=== PATIENT | female | born 1995 | race African-American/Black ===

== ENCOUNTER 2016-08-16 09:49 | Emergency (ER) | payer MEDICAID ==
--- NOTE | 2016-08-16 10:29 | ER Document Report ---
ED GI/ - General Chief Complaint: Urinary Problem Stated Complaint: URINARY PROBLEMS Time Seen by Provider: 08/16/16 10:17 Notes: 21 yo female c/o urinary frequency and vaginal discharge x several days. denies vaginal itch, pain, odor, dysuria. TRAVEL OUTSIDE OF THE [place] IN LAST 30 DAYS: No - HPI Patient complains to provider of: Vaginal discharge Onset: Yesterday Timing/Duration: Sudden Quality of pain: No pain Vaginal bleeding (Compared to normal period): None LMP: 07/21/16 Sexual history: Active, Unprotected intercourse Associated symptoms: Urinary frequency, Vaginal discharge Exacerbated by: Denies Relieved by: Denies Similar symptoms previously: No - Related Data Allergies/Adverse Reactions: No Known Allergies Allergy (Unverified 08/16/16 09:56) Past Medical History - General Information source: Patient - Social History Smoking Status: Never Smoker Frequency of alcohol use: None Drug Abuse: None Lives with: Family Family History: Reviewed & Not Pertinent Patient has suicidal ideation: No Patient has homicidal ideation: No - Medical History Medical History: Negative Renal/ Medical History: Denies: Hx Peritoneal Dialysis Review of Systems - Review of Systems Constitutional: No symptoms reported EENT: No symptoms reported Cardiovascular: No symptoms reported Respiratory: No symptoms reported Gastrointestinal: No symptoms reported Genitourinary: See HPI Female Genitourinary: No symptoms reported Musculoskeletal: No symptoms reported Skin: No symptoms reported Hematologic/Lymphatic: No symptoms reported Neurological/Psychological: No symptoms reported Physical Exam - Vital signs Vitals: Temp Pulse Resp BP Pulse Ox 98.3 F 89 16 131/86 H 98 08/16/16 09:53 08/16/16 09:53 08/16/16 09:53 08/16/16 09:53 08/16/16 09:53 Interpretation: Normal - General General appearance: Appears well, Alert - HEENT Head: Normocephalic, Atraumatic Eyes: Normal Pupils: PERRL - Respiratory Respiratory status: No respiratory distress Chest status: Nontender Breath sounds: Normal Chest palpation: Normal - Cardiovascular Rhythm: Regular Heart sounds: Normal auscultation Murmur: No - Abdominal Inspection: Normal Distension: No distension Bowel sounds: Normal Tenderness: Nontender Organomegaly: No organomegaly - Genitourinary External exam: Normal Speculum exam: Vaginal discharge - thin, yelloe Vaginal bleeding: None Bimanuel exam: Normal. No: Cervical motion tender, Adnexal mass, Adnexal tenderness, Uterus enlarged - Back Back: Normal, Nontender - Extremities General upper extremity: Normal inspection, Nontender, Normal color, Normal ROM , Normal temperature General lower extremity: Normal inspection, Nontender, Normal color, Normal ROM , Normal temperature, Normal weight bearing. No: Camilo's sign - Neurological Neuro grossly intact: Yes Cognition: Normal Orientation: AAOx4 Maxx Coma Scale Eye Opening: Spontaneous Maxx Coma Scale Verbal: Oriented Big Arm Coma Scale Motor: Obeys Commands Big Arm Coma Scale Total: 15 Speech: Normal Motor strength normal: LUE, RUE, LLE, RLE Sensory: Normal - Psychological Associated symptoms: Normal affect, Normal mood - Skin Skin Temperature: Warm Skin Moisture: Dry Skin Color: Normal Course - Re-evaluation Re-evalutation: 08/16/16 10:29 pt evaluated, labs ordered. will continue to monitor 08/16/16 11:49 urinalysis neg, HCG neg, wet mount + BV. pt informed of results 08/16/16 12:47 + chlamydia. pt informed of results. treated with zithromax 1G in ED - Vital Signs Vital signs: Temp Pulse Resp BP Pulse Ox 98.3 F 89 16 131/86 H 98 08/16/16 09:53 08/16/16 09:53 08/16/16 09:53 08/16/16 09:53 08/16/16 09:53 - Laboratory Laboratory results interpreted by me: 08/16/16 08/16/16 10:45 10:56 Urine Urobilinogen 2.0 H Chlamydia DNA (PCR) DETECTED H Discharge - Discharge Clinical Impression: Bacterial vaginosis, Chlamydia Condition: Stable Disposition: HOME, SELF-CARE Instructions: Antibiotic Therapy ([facility]), Vaginosis, Bacterial ([facility]), Azithromycin ([facility]), Chlamydia ([facility]) Additional Instructions: You were treated for chlamydia and bacterial vaginosis today Your partner needs treatment for chlamydia Recommend no unprotected sex Follow up with your primary care if symptoms persist Prescriptions: Metronidazole [Flagyl 500 mg Tablet] 500 mg PO BID #14 tablet
[2016-08-16 11:06] LABS: APPEARANCE,URINE CLEAR; BILIRUBIN,URINE NEGATIVE (NEGATIVE); GLUCOSE, URINE NEGATIVE (NEGATIVE); KETONES,URINE NEGATIVE (NEGATIVE); LEUKOCYTE ESTERASE,URINE NEGATIVE (NEGATIVE); NITRITE,URINE NEGATIVE (NEGATIVE); PROTEIN,URINE NEGATIVE (NEGATIVE); URINE SPECIFIC GRAVITY 1.018
[2016-08-16 12:36] LABS: CHLAM PCR DETECTED (NOT DETECT)
[2016-08-16] MEDS ORDERED: AZITHROMYCIN 250 MG TABLET PO ONE (12:51)
[2016-08-16 13:03] VITALS: BP 124/83
== END 2016-08-16 12:55 | disposition home or self-care (01) ==
LOC: ER 09:49
DX: A56.02 Chlamydial vulvovaginitis (principal); R35.0 Frequency of micturition
CPT/HCPCS: 81001; 81025; 87210; 87491; 87591; 99283

== ENCOUNTER 2017-01-27 12:50 | Emergency (ER) | payer SELFPAY ==
[2017-01-27 12:54] VITALS: BP 142/76
--- NOTE | 2017-01-27 13:32 | ER Document Report ---
HPI - HPI Patient complains to provider of: Right foot pain Onset: Other Onset/Duration: Intermittent Quality of pain: Throbbing Severity: Moderate Pain Level: 3 Context: Patient states she has been having intermittent right upper foot pain and swelling for the last week and a half. Patient states she has had episodes of this in the past when she was in the marching band for high school. Denies known injury. Patient works standing on her feet all day. Associated Symptoms: None Exacerbated by: Standing, Movement Relieved by: Denies Similar symptoms previously: Yes Recently seen / treated by doctor: No - ROS ROS below otherwise negative: Yes Systems Reviewed and Negative: Yes All other systems reviewed and negative - CONSTITUTIONAL Constitutional: DENIES: Fever - EENT EENT: DENIES: Congestion - NEURO Neurology: DENIES: Headache - CARDIOVASCULAR Cardiovascular: DENIES: Chest pain - RESPIRATORY Respiratory: DENIES: Trouble Breathing - GASTROINTESTINAL Gastrointestinal: DENIES: Abdominal Pain - URINARY Urinary: DENIES: Dysuria - REPRODUCTIVE Reproductive: DENIES: : - MUSCULOSKELETAL Musculoskeletal: REPORTS: Extremity pain - Right upper foot, Swelling - DERM Skin Color: Normal Skin Problems: None Past Medical History - General Information source: Patient - Social History Smoking Status: Never Smoker Frequency of alcohol use: None Drug Abuse: None Lives with: Family Family History: Reviewed & Not Pertinent - Medical History Medical History: Negative Surgical Hx: Negative - Immunizations Hx Diphtheria, Pertussis, Tetanus Vaccination: No Vertical Provider Document - CONSTITUTIONAL Agree With Documented VS: Yes Exam Limitations: No Limitations General Appearance: WD/WN, No Apparent Distress - INFECTION CONTROL TRAVEL OUTSIDE OF THE [place] IN LAST 30 DAYS: No - HEENT HEENT: Atraumatic, Normocephalic - RESPIRATORY Respiratory: Breath Sounds Normal, No Respiratory Distress O2 Sat by Pulse Oximetry: 99 - CARDIOVASCULAR Cardiovascular: Regular Rate, Regular Rhythm - GI/ABDOMEN Gastrointestinal: Abdomen Soft - MUSCULOSKELETAL/EXTREMETIES Musculoskeletal/Extremeties: MAEW, FROM, Tender - Right lateral upper foot, Edema - Mild. negative: Eccymosis - NEURO Level of Consciousness: Awake, Alert, Appropriate Notes: Neurovascular and sensation intact to right foot. - DERM Integumentary: Warm, Dry, No Rash. negative: Abscess Course - Re-evaluation Re-evalutation: 01/27/17 14:54 X-rays normal and this was discussed with patient. - Vital Signs Vital signs: Temp Pulse Resp BP Pulse Ox 98.8 F 73 20 142/76 H 99 01/27/17 12:53 01/27/17 12:53 01/27/17 12:53 01/27/17 12:53 01/27/17 12:53 Procedures - Immobilization Right Foot Pre-Proc Neuro Vasc Exam: Normal Immobilizer type: Post-op shoe Performed by: PCT Post-Proc Neuro Vasc Exam: Normal Alignment checked and good: Yes Discharge - Discharge Clinical Impression: Right foot pain Condition: Good Disposition: HOME, SELF-CARE Additional Instructions: Ice and elevate foot Ibuprofen as prescribed Wear hard sole fracture shoe for 1-2 weeks to provide support to foot Follow-up with your primary care physician if not better in 2 weeks, may need orthopedic referral Return as needed Prescriptions: Ibuprofen 800 mg PO PRN PRN #20 tablet PRN Reason: Forms: Return to Work
--- NOTE | 2017-01-27 15:02 | RADIOLOGY REPORT (SQ) ---
EXAM DESCRIPTION: FOOT RIGHT COMPLETE COMPLETED DATE/TIME: 01/27/2017 2:31 pm REASON FOR STUDY: pain COMPARISON: None. NUMBER OF VIEWS: Three views. TECHNIQUE: AP, lateral and oblique radiographic images acquired of the right foot. LIMITATIONS: None. FINDINGS: MINERALIZATION: Normal. BONES: No acute fracture or dislocation. No worrisome bone lesions. JOINTS: No effusions. SOFT TISSUES: No soft tissue swelling. No foreign body. OTHER: No other significant finding. IMPRESSION: NEGATIVE STUDY OF THE RIGHT FOOT. NO RADIOGRAPHIC EVIDENCE OF ACUTE INJURY. TECHNICAL DOCUMENTATION: JOB ID: [id number] [employer]- All Rights Reserved
== END 2017-01-27 15:28 | disposition home or self-care (01) ==
LOC: ER 12:50
DX: M79.671 Pain in right foot (principal); M79.89 Other specified soft tissue disorders
CPT/HCPCS: 99283

== ENCOUNTER 2017-08-16 14:57 | Emergency (ER) | payer MEDICAID ==
[2017-08-16 15:17] VITALS: BP 135/77
--- NOTE | 2017-08-16 15:26 | ER Document Report ---
ED GI/ - General Chief Complaint: Urinary Frequency Stated Complaint: URINARY PROBLEMS Time Seen by Provider: 08/16/17 15:17 Mode of Arrival: Ambulatory Information source: Patient TRAVEL OUTSIDE OF THE [place] IN LAST 30 DAYS: No - HPI Patient complains to provider of: Dysuria Notes: 08/16/17 15:23 Patient is here with complaints of dysuria, urinary frequency and urgency for the last week and a half. She had tried some [id number] AZO, but states that is no longer working. Now she starting have some pain in her right back. No nausea, vomiting, diarrhea. No fever. No rash. No injury. No chest pain or shortness of breath. No vaginal bleeding or discharge. No other complaints. - Related Data Allergies/Adverse Reactions: No Known Allergies Allergy (Verified 01/27/17 12:53) Past Medical History - Social History Smoking Status: Unknown if Ever Smoked Family History: Reviewed & Not Pertinent Renal/ Medical History: Denies: Hx Peritoneal Dialysis - Immunizations Hx Diphtheria, Pertussis, Tetanus Vaccination: No Review of Systems - Review of Systems -: Yes All other systems reviewed and negative Physical Exam - Vital signs Vitals: Temp Pulse Resp BP Pulse Ox 98.6 F 93 16 135/77 H 98 08/16/17 15:04 08/16/17 15:04 08/16/17 15:04 08/16/17 15:04 08/16/17 15:04 - Notes Notes: GENERAL: alert, cooperative, nontoxic, no distress. HEAD: normocephalic, atraumatic EYES: conjunctiva pink without discharge, no external redness or swelling. EARS: no external swelling, no external redness NOSE: atraumatic, no external swelling MOUTH/THROAT: mucous membranes moist and pink, posterior pharynx without erythema, swelling, exudate. No trismus or drooling. NECK: soft, supple, full range of motion, no meningismus. CHEST: no distress, lungs clear and equal throughout. No wheezing, rales, rhonchi. CARDIAC: regular rate and rhythm, no murmur, normal capillary refill, normal pulses. No peripheral edema noted. ABDOMEN: Soft, nontender. No rebound tenderness or guarding. BACK: full range of motion, mild right CVA tenderness to percussion. EXTREMITIES: full range of motion of all extremities. No redness, no swelling. NEURO: alert and oriented x 3, no focal deficits, full range of motion of all extremities. PYSCH: appropriate mood, affect. Patient is cooperative. SKIN: pink, warm, dry, no rash. Course - Re-evaluation Re-evalutation: 08/16/17 15:58 Patient is nontoxic-appearing with stable vitals. She is here with dysuria, urinary frequency, urgency and some right sided flank pain. She has no abdominal tenderness on exam. She is afebrile. Her vitals are stable. She does have some mild right-sided CVA tenderness. Urinalysis is positive for UTI. She likely has some mild or early pyelonephritis. Patient will be discharged home on antibiotics as well as Pyridium and instructed to drink lots of water. She should follow-up if she has not improving in the next 2 or 3 days , she follow-up sooner if she develops worsening pain, high fever, persistent vomiting, or any further concerns. Urine culture will be sent. The patient is noted to have elevated blood pressure during today's emergency department visit. The patient was informed of this finding. The patient was instructed that this may be related to pre-hypertension and requires further evaluation with a primary care provider. The patient has no hypertensive symptoms at this time. The patient's emergency department workup and current diagnosis were explained to the patient and or family. Follow-up instructions were provided. Medications if prescribed were discussed. Instructions for when to return to the emergency department including specific worrisome symptoms were discussed with the patient and/or family. - Vital Signs Vital signs: Temp Pulse Resp BP Pulse Ox 98.6 F 93 16 135/77 H 98 08/16/17 15:04 08/16/17 15:04 08/16/17 15:04 08/16/17 15:04 08/16/17 15:04 - Laboratory Laboratory results interpreted by me: 08/16/17 15:25 Urine Urobilinogen 2.0 H Ur Leukocyte Esterase MODERATE H Urine Ascorbic Acid 20 H Discharge - Discharge Clinical Impression: UTI (urinary tract infection) Qualifiers: Urinary tract infection type: acute pyelonephritis Qualified Code(s): N10 - Acute pyelonephritis Condition: Stable Disposition: HOME, SELF-CARE Instructions: Pyelonephritis ([facility]), Urinary Tract Infection ([facility]), Cephalexin ( [facility]), Urinary Anesthetic Agent ([facility]) Additional Instructions: Take medications as prescribed. Drink lots of water. Follow-up if not improving in the next 2-3 days, sooner for worsening pain, fever, numbness, tingling, weakness, persistent vomiting, severe abdominal pain, or for any further concerns. Your blood pressure was elevated during today's visit. Have this rechecked with your doctor. Prescriptions: Cephalexin Monohydrate [Keflex 500 mg Capsule] 500 mg PO QID #40 capsule Phenazopyridine HCl [Pyridium 200 mg Tablet] 200 mg PO TID #9 tablet Referrals: [facility] [Provider Group] - Follow up as needed
[2017-08-16 15:44] LABS: APPEARANCE,URINE SLIGHTLY-CLOUDY; BILIRUBIN,URINE NEGATIVE (NEGATIVE); COLOR,URINE YELLOW; GLUCOSE, URINE NEGATIVE (NEGATIVE); KETONES,URINE NEGATIVE (NEGATIVE); LEUKOCYTE ESTERASE,URINE MODERATE (NEGATIVE); NITRITE,URINE NEGATIVE (NEGATIVE); PROTEIN,URINE NEGATIVE (NEGATIVE); URINE SPECIFIC GRAVITY 1.019
[2017-08-16] MEDS ORDERED: CEPHALEXIN 500 MG CAPSULE PO ONE (15:59)
== END 2017-08-16 16:06 | disposition home or self-care (01) ==
LOC: ER 14:57
DX: N10 Acute pyelonephritis (principal)
CPT/HCPCS: 81001; 81025; 87086; 87088; 87186; 99283

== ENCOUNTER 2017-09-03 06:54 | Emergency (ER) | payer MEDICAID ==
--- NOTE | 2017-09-03 07:21 | ER Document Report ---
ED General - General Chief Complaint: Vag Bleeding, +preg <12wks Stated Complaint: BLEEDING Time Seen by Provider: 09/03/17 07:17 TRAVEL OUTSIDE OF THE [place] IN LAST 30 DAYS: No - HPI Notes: 22-year-old female who is approximately 6 weeks 2 para 0 states she woke up this morning with a blood clot and light heavy bleeding. Denies any pelvic pain or vaginal pain. Patient states she was seen by Dr. Edna Redd, CHILD CARE SUPERVISOR [facility], was started on progesterone to help facilitate as patient lost her first child due to a miscarriage in the first trimester. Patient has been taking progesterone 200 mg once a day since August 31. denies any clotting disorders, bleeding disorders. Patient does not take any blood thinners. Denies any lower abdominal pain. Denies fevers, chills, chest pain,palpitations, shortness of breath, dyspnea, nausea, vomiting, diarrhea, abdominal pain, hematuria,blurred vision, double vision, loss of vision, speech changes, LH, dizziness, syncope, headaches, wheezing, ST, URI, neck pain, weakness, bowel or bladder dysfunction , saddle anesthesia, numbness or tingling in bilateral upper or lower extremities equally, muscle paralysis, weakness in bilateral upper or lower extremities equally or rash. Denies IV drug use. - Related Data Allergies/Adverse Reactions: No Known Allergies Allergy (Verified 09/03/17 07:54) Past Medical History - General Information source: Patient - Social History Smoking Status: Unknown if Ever Smoked Family History: Reviewed & Not Pertinent Renal/ Medical History: Denies: Hx Peritoneal Dialysis - Immunizations Hx Diphtheria, Pertussis, Tetanus Vaccination: No Review of Systems - Review of Systems Constitutional: No symptoms reported EENT: No symptoms reported Cardiovascular: No symptoms reported Respiratory: No symptoms reported Gastrointestinal: No symptoms reported Genitourinary: No symptoms reported Female Genitourinary: See HPI Musculoskeletal: No symptoms reported Skin: No symptoms reported Hematologic/Lymphatic: No symptoms reported Neurological/Psychological: No symptoms reported Physical Exam - Vital signs Vitals: Temp Pulse Resp BP Pulse Ox 98.0 F 81 20 141/82 H 100 09/03/17 06:59 09/03/17 06:59 09/03/17 06:59 09/03/17 06:59 09/03/17 06:59 - Notes Notes: PHYSICAL EXAMINATION: GENERAL: Well-appearing, well-nourished and in no acute distress. HEAD: Atraumatic, normocephalic. EYES: Pupils equal round and reactive to light, extraocular movements intact, conjunctiva are normal. ENT: Nares patent, oropharynx clear without exudates. Moist mucous membranes. NECK: Normal range of motion, supple without lymphadenopathy LUNGS: Breath sounds clear to auscultation bilaterally and equal. No wheezes rales or rhonchi. HEART: Regular rate and rhythm without murmurs ABDOMEN: Soft, nontender, nondistended abdomen. No guarding, no rebound. No masses appreciated. Female : External genitalia without erythema, exudate or discharge. Vaginal vault is without discharge. Cervix is of normal color without lesion. Uterus is noted to be of normal size and nontender. No cervical motion tenderness is seen. No masses are palpated. scant blood in the vaginal vault without clots, os closed, no adnexal tenderness or mass Musculoskeletal: Normal range of motion, no pitting or edema. No cyanosis. NEUROLOGICAL: Cranial nerves grossly intact. Normal speech, normal gait. Normal sensory, motor exams PSYCH: Normal mood, normal affect. SKIN: Warm, Dry, normal turgor, no rashes or lesions noted. Course - Re-evaluation Re-evalutation: 09/03/17 08:40 Healthy 22-year-old female is afebrile, vitals stable and in no distress presents for evaluation of new onset vaginal bleeding being 6 weeks . cbc negative for any anemia or leukocytosis, CMP negative for any renal or hepatic dysfunction, patient with slight hypokalemia of 3.5, however patient tolerate p.o. replacement with high potassium diet such as bananas. Patient is O+, no need for RhoGam. hcg 28, 461. Wet mount positive for bacterial vaginosis , negative for trichomonas or yeast infection. GC pending. Transvaginal ultrasound shows an intrauterine approximately 6 weeks, heart rate 114 with a small subchorionic hemorrhage. Urinalysis does show proteinuria. On reevaluation, patient remains afebrile, vitals stable and in no distress. Discussed laboratory and diagnostic imaging results. Consulte and discussed pertinent clinical, radiological and laboratory findings with Dr. Edna Redd, CHILD CARE SUPERVISOR on-call at 10 AM. Stated she will see patient in the office tomorrow morning, to continue taking the Prometrium nightly as she is prescribed to her, take Flagyl directed to treat for BV, she experiences more than 1 pad an hour or symptomatic with dizziness or lightheadedness due to blood loss, return to the ER. States that she had a small subchorionic hemorrhage last week which sounds like it is smaller due to the size of the bleed today being 1 cm x [address] Redd felt it was appropriate for patient to be discharged home. After performing a Medical Screening Examination, I estimate there is LOW risk for ACUTE APPENDICITIS, BOWEL OBSTRUCTION, ACUTE CHOLECYSTITIS, PERFORATED DIVERTICULITIS, INCARCERATED HERNIA, PANCREATITIS, PELVIC INFLAMMATORY DISEASE, PERFORATED ULCER, ECTOPIC , or TUBO- OVARIAN ABSCESS, thus I consider the discharge disposition reasonable. Also, there is no evidence or peritonitis, sepsis, or toxicity. I have reevaluated this patient multiple times and no significant life threatening changes are noted. The patient and I have discussed the diagnosis and risks, and we agree with discharging home with close follow-up with the understanding that symptoms and presentations can change. We also discussed returning to the Emergency Department immediately if new or worsening symptoms occur. We have discussed the symptoms which are most concerning (e.g., bloody stool, fever, changing or worsening pain, vomiting) that necessitate immediate return. 09/03/17 10:16 - Vital Signs Vital signs: Temp Pulse Resp BP Pulse Ox 98.0 F 81 20 141/82 H 100 09/03/17 06:59 09/03/17 06:59 09/03/17 06:59 09/03/17 06:59 09/03/17 06:59 - Laboratory Result Diagrams: 09/03/17 07:46 09/03/17 07:46 Laboratory results interpreted by me: 09/03/17 09/03/17 07:46 07:46 Potassium 3.5 L Beta HCG, Quant 32979.00 H Urine Blood LARGE H Discharge - Discharge Clinical Impression: Bacterial vaginosis, Intrauterine , First trimester Subchorionic hemorrhage in first trimester Qualifiers: Fetus number: single or unspecified fetus Qualified Code(s): O41.8X10 - Other specified disorders of amniotic fluid and membranes, first trimester, not applicable or unspecified Condition: Good Disposition: HOME, SELF-CARE Instructions: Bleeding During Early ([facility]), ([facility]), Vaginal Bleeding ([facility]), Vaginosis, Bacterial ([facility]) Additional Instructions: Continue Prometrium 200 mg p.o. nightly. Take Flagyl as directed with food, this will treat your BV. Follow-up with Dr. Redd's office tomorrow morning. Advised pelvic rest, no sexual intercourse or tampons. You need to follow-up with CHILD CARE SUPERVISOR tomorrow. Return immediately if you worsening pain, you began bleeding through more than 1 pad per hour for more than 3 hours, you pass out, have persistent vomiting, develop a fever greater than 100.4F, or any other symptoms that are concerning to you. Prescriptions: Metronidazole [Flagyl] 500 mg PO BID #14 tablet Forms: Return to Work, Parent Work Note Referrals: BRITTANY REDD MD [ACTIVE STAFF] - Follow up tomorrow (call in am for appt )
[2017-09-03] MEDS ORDERED: NORMAL SALINE 500 ML IV ONE (07:32)
[2017-09-03 07:58] LABS: ABSOLUTE EOSINOPHILS # (AUTO) 0.1 10^3/uL (0.0-0.6); ABSOLUTE LYMPHOCYTES (AUTO) 1.8 10^3/uL (0.5-4.7); ABSOLUTE MONOCYTES (AUTO) 0.4 10^3/uL (0.1-1.4); ABSOLUTE NEUT (AUTO) 3.2 10^3/uL (1.7-8.2); BASOPHILS % (AUTO) 0.6 % (0-2); EOSINOPHILS % (AUTO) 1.3 % (0-6); HEMATOCRIT 37.2 % (36.0-47.0); HEMOGLOBIN 12.7 g/dL (12.0-15.5); LYMPHOCYTES % (AUTO) 32.3 % (13-45); MEAN CORPUSCULAR HEMOGLOBIN 31.2 pg (27.0-33.4); MEAN CORPUSCULAR HGB CONC 34.1 g/dL (32.0-36.0); MEAN CORPUSCULAR VOLUME 92 fl (80-97); MONOCYTES % (AUTO) 7.8 % (3-13); PLATELET COUNT 176 10^3/uL (150-450); RED BLOOD COUNT 4.07 10^6/uL (3.72-5.28); RED CELL DISTRIBUTION WIDTH 12.5 % (11.5-14.0); TOTAL CELLS COUNTED % (AUTO) 100 %; WHITE BLOOD COUNT 5.5 10^3/uL (4.0-10.5)
[2017-09-03 08:10] LABS: APPEARANCE,URINE CLEAR; BILIRUBIN,URINE NEGATIVE (NEGATIVE); COLOR,URINE STRAW; GLUCOSE, URINE NEGATIVE (NEGATIVE); KETONES,URINE NEGATIVE (NEGATIVE); LEUKOCYTE ESTERASE,URINE NEGATIVE (NEGATIVE); NITRITE,URINE NEGATIVE (NEGATIVE); PROTEIN,URINE NEGATIVE (NEGATIVE); URINE SPECIFIC GRAVITY 1.008; UROBILINOGEN,URINE NEGATIVE mg/dL (<2.0)
[2017-09-03 08:15] LABS: ALANINE AMINOTRANSFERASE 17 U/L (9-52); ALBUMIN 3.9 g/dL (3.5-5.0); ALKALINE PHOSPHATASE 56 U/L (38-126); ANION GAP 10 (5-19); ASPARTATE AMINO TRANSFERASE 17 U/L (14-36); BILIRUBIN,DIRECT 0.2 mg/dL (0.0-0.4); BILIRUBIN,TOTAL 0.4 mg/dL (0.2-1.3); BLOOD UREA NITROGEN 11 mg/dL (7-20); CALCIUM 9.2 mg/dL (8.4-10.2); CARBON DIOXIDE 25 mmol/L (22-30); CHLORIDE 105 mmol/L (98-107); GLUCOSE 95 mg/dL (75-110); LIPASE 72.8 U/L (23-300); POTASSIUM 3.5 mmol/L (3.6-5.0); SODIUM 139.7 mmol/L (137-145); TOTAL PROTEIN 7.5 g/dL (6.3-8.2)
[2017-09-03 08:28] LABS: RBCS (WET MOUNT) 4+ RBCS SEEN; T.VAGINALIS (WET MOUNT) NO TRICHOMONAS SEEN; WBCS (WET MOUNT) FEW WBCS SEEN; YEAST (WET MOUNT) NO YEAST SEEN
--- NOTE | 2017-09-03 09:37 | RADIOLOGY REPORT (SQ) ---
EXAM DESCRIPTION: U/S OB TRANSVAG W/DOPPLER COMPLETED DATE/TIME: 09/03/2017 9:11 am REASON FOR STUDY: vag bleeding, 6 weeks COMPARISON: None. TECHNIQUE: Transvaginal static and realtime grayscale images acquired of the pelvis. Additional inessa cted spectral and color Doppler images recorded. All images stored on PACs. [facility],[address] CLINICAL DATES: ELDER. LIMITATIONS: None. FINDINGS: FETUS: Living intrauterine . ULTRASOUND EGA: 6 weeks 0 days ULTRASOUND ELDER: 04/29/2018 CRL: 3.3 mm FHR: 114 beats per minute. SUBCHORIONIC BLEED: Yes. SIZE OF BLEED: 1 x 2 cm. UTERUS: No masses. No anomalies. CERVICAL LENGTH: 3.4 cm. Closed. RIGHT ADNEXA: Ovary not identified. No adnexal free fluid. No adnexal masses. LEFT ADNEXA: Ovary not identified. No adnexal free fluid. No adnexal masses. FREE FLUID: None. OTHER: No other significant finding. IMPRESSION: LIVING INTRAUTERINE . EGA 6 weeks 0 days. Small subchronic hemorrhage. Trimester of : First - 0 to 13 weeks. TECHNICAL DOCUMENTATION: JOB ID: [id number] [employer]- All Rights Reserved rev-08/24 Reading location - IP/workstation name: [email or web address]
[2017-09-03 10:25] VITALS: BP 124/69
[2017-09-03 11:12] LABS: CHLAM PCR NOT DETECTED (NOT DETECT); GON PCR NOT DETECTED (NOT DETECT)
== END 2017-09-03 10:25 | disposition home or self-care (01) ==
LOC: ER 06:54
DX: O23.591 Infection of other part of genital tract in pregnancy, first trimester (principal); B96.89 Other specified bacterial agents as the cause of diseases classified elsewhere; O46.91 Antepartum hemorrhage, unspecified, first trimester; Z3A.01 Less than 8 weeks gestation of pregnancy
CPT/HCPCS: 99284; 96360; 86900; 86901; 36415; 87210; 84702; 83690; 85025; 80053; 81001; 87491; 87591; 76817; 93976; J7040

== ENCOUNTER 2017-09-09 16:35 | Emergency (ER) | payer MEDICAID ==
--- NOTE | 2017-09-09 17:28 | ER Document Report ---
ED General - General Chief Complaint: Vag Bleeding, +preg <12wks Stated Complaint: BLEEDING Time Seen by Provider: 09/09/17 17:24 Mode of Arrival: Ambulatory Information source: Patient, [facility] Records Notes: 22-year-old female 2 para 0 who is approximately 7-8 weeks presents with complaints of continued vaginal bleeding and spotting. Patient denies any fevers or chills denies any nausea vomiting or diarrhea patient is noted to the past large clots TRAVEL OUTSIDE OF THE [place] IN LAST 30 DAYS: No - HPI Onset: Last week Onset/Duration: Waxing and waning Quality of pain: Cramping Severity: Mild Pain Level: 1 Associated symptoms: Other Exacerbated by: Denies Relieved by: Denies Similar symptoms previously: Yes Recently seen / treated by doctor: Yes - Related Data Allergies/Adverse Reactions: No Known Allergies Allergy (Verified 09/09/17 17:29) Past Medical History - Social History Smoking Status: Never Smoker Cigarette use (# per day): No Chew tobacco use (# tins/day): No Smoking Education Provided: No Family History: Reviewed & Not Pertinent Renal/ Medical History: Denies: Hx Peritoneal Dialysis - Immunizations Hx Diphtheria, Pertussis, Tetanus Vaccination: No Review of Systems - Review of Systems Notes: REVIEW OF SYSTEMS: CONSTITUTIONAL : Denies fever, chills, or sweats. Denies recent illness. EENT: Denies eye, ear, throat, or mouth pain or symptoms. Denies nasal or sinus congestion or discharge. Denies throat, tongue, or mouth swelling or difficulty swallowing. CARDIOVASCULAR: Denies chest pain. Denies palpitations or racing or irregular heart beat. Denies ankle edema. RESPIRATORY: Denies cough, cold, or chest congestion. Denies shortness of breath, difficulty breathing, or wheezing. GASTROINTESTINAL: Denies abdominal pain or distention. Denies nausea, vomiting , or diarrhea. Denies blood in vomitus, stools, or per rectum. Denies black, tarry stools. Denies constipation. GENITOURINARY: Denies difficulty urinating, painful urination, burning, frequency, blood in urine, or discharge. FEMALE GENITOURINARY: Admits vaginal bleeding cramping MUSCULOSKELETAL: Denies back or neck pain or stiffness. Denies joint pain or swelling. SKIN: Denies rash, lesions or sores. HEMATOLOGIC : Denies easy bruising or bleeding. LYMPHATIC: Denies swollen, enlarged glands. NEUROLOGICAL: Denies confusion or altered mental status. Denies passing out or loss of consciousness. Denies dizziness or lightheadedness. Denies headache. Denies weakness or paralysis or loss of use of either side. Denies problems with gait or speech. Denies sensory loss, numbness, or tingling. Denies seizures. PSYCHIATRIC: Denies anxiety or stress. Denies depression, suicidal ideation, or homicidal ideation. ALL OTHER SYSTEMS REVIEWED AND NEGATIVE. PHYSICAL EXAMINATION: GENERAL: Well-appearing, well-nourished and in no acute distress. HEAD: Atraumatic, normocephalic. EYES: Pupils equal round and reactive to light, extraocular movements intact, conjunctiva are normal. ENT: Nares patent, oropharynx clear without exudates. Moist mucous membranes. NECK: Normal range of motion, supple without lymphadenopathy LUNGS: Breath sounds clear to auscultation bilaterally and equal. No wheezes rales or rhonchi. HEART: Regular rate and rhythm without murmurs ABDOMEN: Soft, nontender, nondistended abdomen. No guarding, no rebound. No masses appreciated. Female : deferred Musculoskeletal: Normal range of motion, no pitting or edema. No cyanosis. NEUROLOGICAL: Cranial nerves grossly intact. Normal speech, normal gait. Normal sensory, motor exams PSYCH: Normal mood, normal affect. SKIN: Warm, Dry, normal turgor, no rashes or lesions noted. Dictation was performed using [employer] voice recognition software Physical Exam - Vital signs Vitals: Temp Pulse Resp BP Pulse Ox 98.2 F 88 16 142/85 H 100 09/09/17 16:39 09/09/17 16:39 09/09/17 16:39 09/09/17 16:39 09/09/17 16:39 Course - Re-evaluation Re-evalutation: 09/09/17 17:28 concerns for miscarriage noted, ultrasound pending 09/09/17 17:30 - Vital Signs Vital signs: Temp Pulse Resp BP Pulse Ox 98.2 F 88 16 142/85 H 100 09/09/17 16:39 09/09/17 16:39 09/09/17 16:39 09/09/17 16:39 09/09/17 16:39 Discharge - Discharge Clinical Impression: Miscarriage Condition: Stable Disposition: HOME, SELF-CARE Instructions: Miscarriage ([facility]) Referrals: [facility] [Provider Group] - Follow up tomorrow
[2017-09-09] MEDS ORDERED: ACETAMINOPHEN 325 MG TABLET PO ONE (17:30)
--- NOTE | 2017-09-09 18:40 | RADIOLOGY REPORT (SQ) ---
EXAM DESCRIPTION: U/S OB TRANSVAGINAL W/O DOP COMPLETED DATE/TIME: 09/09/2017 6:14 pm REASON FOR STUDY: vaginal bleeding COMPARISON: 09/03/2017. TECHNIQUE: Transvaginal static and realtime grayscale images acquired of the pelvis. Additional inessa cted spectral and color Doppler images recorded. All images stored on PACs. BHCG: See previous. LIMITATIONS: None. FINDINGS: Previously seen intrauterine is no longer visualized. There is thickening of th e endometrium to about 3.0 cm. The right ovary is normal. Left ovary is not visualized. Small amou nt of free fluid in the pelvis. IMPRESSION: demise at 6 weeks. TECHNICAL DOCUMENTATION: JOB ID: [id number] [employer]- All Rights Reserved Reading location - IP/workstation name: [email or web address]
[2017-09-09 18:49] VITALS: BP 150/73
== END 2017-09-09 18:49 | disposition home or self-care (01) ==
LOC: ER 16:35
DX: O03.9 Complete or unspecified spontaneous abortion without complication (principal); Z3A.01 Less than 8 weeks gestation of pregnancy
CPT/HCPCS: 99284; 76817; J3490

== ENCOUNTER 2018-01-05 07:41 | Emergency (ER) | payer MEDICAID ==
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
--- NOTE | 2018-01-05 08:47 | RADIOLOGY REPORT (SQ) ---
EXAM DESCRIPTION: CHEST 2 VIEWS COMPLETED DATE/TIME: 01/05/2018 8:28 am REASON FOR STUDY: near syncope COMPARISON: None. TECHNIQUE: Frontal and lateral radiographic views of the chest acquired. NUMBER OF VIEWS: Two view. LIMITATIONS: None. FINDINGS: LUNGS AND PLEURA: No opacities, masses or pneumothorax. No pleural effusion. MEDIASTINUM AND HILAR STRUCTURES: No masses or contour abnormalities. HEART AND VASCULAR STRUCTURES: Heart normal size. No evidence for failure. BONES: No acute findings. HARDWARE: None in the chest. OTHER: No other significant finding. IMPRESSION: NO SIGNIFICANT RADIOGRAPHIC FINDING IN THE CHEST. TECHNICAL DOCUMENTATION: JOB ID: [id number] [employer]- All Rights Reserved Reading location - IP/workstation name: [email or web address]
[2018-01-05 09:34] VITALS: BP 128/91
--- NOTE | 2018-01-05 20:26 | EKG REPORT ---
SEVERITY:- NORMAL ECG - SINUS RHYTHM : Confirmed by: Consuelo Bailey MD 05-Jan-2018 20:25:17
== END 2018-01-05 09:32 | disposition home or self-care (01) ==
LOC: ER 07:41
DX: R07.89 Other chest pain (principal); X50.0XXA Overexertion from strenuous movement or load, initial encounter
CPT/HCPCS: 71046; 81025; 93005; 93010; 99285

== ENCOUNTER 2018-09-26 16:24 | Emergency (ER) | payer SELFPAY ==
[2018-09-26 16:33] VITALS: BP 151/81
--- NOTE | 2018-09-26 17:24 | ER Document Report ---
ED Medical Screen (RME) - General Chief Complaint: Abdominal Pain Stated Complaint: ABDOMINAL PAIN Time Seen by Provider: 09/26/18 17:20 Mode of Arrival: Ambulatory Information source: Patient Notes: Patient presents to the emergency department with complaints of mid abdominal pain for the past 2 days. Reports she took 2 home test and they were both positive. Patient has history of 2 miscarriages G2, P0. Denies vaginal bleeding. Denies fever vomiting diarrhea. No complaints of pain with void patient is happy smiling laughing no distress I have greeted and performed a rapid initial assessment of this patient. A comprehensive ED assessment and evaluation of the patient, analysis of test results and completion of the medical decision making process will be conducted by additional ED providers. Dictation of this chart was performed using voice recognition software; therefore, there may be some unintended grammatical errors. TRAVEL OUTSIDE OF THE [place] IN LAST 30 DAYS: No - Related Data Allergies/Adverse Reactions: No Known Allergies Allergy (Verified 09/26/18 16:25) Past Medical History Renal/ Medical History: Denies: Hx Peritoneal Dialysis - Immunizations Hx Diphtheria, Pertussis, Tetanus Vaccination: No Physical Exam - Vital signs Vitals: Temp Pulse Resp BP Pulse Ox 98.5 F 91 16 151/81 H 98 09/26/18 16:31 09/26/18 16:31 09/26/18 16:31 09/26/18 16:31 09/26/18 16:31 Course - Vital Signs Vital signs: Temp Pulse Resp BP Pulse Ox 98.5 F 91 16 151/81 H 98 09/26/18 16:31 09/26/18 16:31 09/26/18 16:31 09/26/18 16:31 09/26/18 16:31
[2018-09-26 18:15] LABS: ABSOLUTE BASOPHILS # (AUTO) 0.1 10^3/uL (0.0-0.2); ABSOLUTE MONOCYTES (AUTO) 0.6 10^3/uL (0.1-1.4); ABSOLUTE NEUT (AUTO) 5.2 10^3/uL (1.7-8.2); BASOPHILS % (AUTO) 1.1 % (0-2); EOSINOPHILS % (AUTO) 0.5 % (0-6); HEMOGLOBIN 13.8 g/dL (12.0-15.5); LYMPHOCYTES % (AUTO) 25.1 % (13-45); MEAN CORPUSCULAR HEMOGLOBIN 31.7 pg (27.0-33.4); MEAN CORPUSCULAR HGB CONC 34.5 g/dL (32.0-36.0); MEAN CORPUSCULAR VOLUME 92 fl (80-97); MONOCYTES % (AUTO) 7.8 % (3-13); PLATELET COUNT 196 10^3/uL (150-450); RED BLOOD COUNT 4.35 10^6/uL (3.72-5.28); RED CELL DISTRIBUTION WIDTH 12.5 % (11.5-14.0); SEGMENTED NEUTROPHILS % (AUTO) 65.5 % (42-78); TOTAL CELLS COUNTED % (AUTO) 100 %
[2018-09-26 18:23] LABS: APPEARANCE,URINE CLEAR; BILIRUBIN,URINE NEGATIVE (NEGATIVE); COLOR,URINE YELLOW; GLUCOSE, URINE NEGATIVE (NEGATIVE); KETONES,URINE NEGATIVE (NEGATIVE); LEUKOCYTE ESTERASE,URINE NEGATIVE (NEGATIVE); NITRITE,URINE NEGATIVE (NEGATIVE); PROTEIN,URINE NEGATIVE (NEGATIVE); URINE SPECIFIC GRAVITY 1.012
[2018-09-26 18:37] LABS: ALANINE AMINOTRANSFERASE 17 U/L (9-52); ALBUMIN 4.4 g/dL (3.5-5.0); ALKALINE PHOSPHATASE 78 U/L (38-126); ANION GAP 11 (5-19); ASPARTATE AMINO TRANSFERASE 20 U/L (14-36); BILIRUBIN,DIRECT 0.2 mg/dL (0.0-0.4); BLOOD UREA NITROGEN 6 mg/dL (7-20); CALCIUM 9.2 mg/dL (8.4-10.2); CARBON DIOXIDE 25 mmol/L (22-30); CHLORIDE 102 mmol/L (98-107); GLUCOSE 94 mg/dL (75-110); POTASSIUM 3.6 mmol/L (3.6-5.0); TOTAL PROTEIN 7.9 g/dL (6.3-8.2)
--- NOTE | 2018-09-26 20:12 | RADIOLOGY REPORT (SQ) ---
EXAM DESCRIPTION: US TRANSVAGINAL COMPLETED DATE/TME: 09/26/2018 17:22 CLINICAL HISTORY: 23 years, Female, ABD PAIN, 2+preg test, hx 2 miscarriages COMPARISON: None. TECHNIQUE: LIMITATIONS: None. FINDINGS: There is a probable intrauterine gestational sac, corresponding to 5 weeks 1 day gestational age, based on a sac diameter of 3.6 mm. There is no evidence of an embryo or yolk sac, at this time. There is a 7 mm posterior uterine fibroid. The ovaries are unremarkable. No free fluid. IMPRESSION: 5 week 1 day intrauterine gestational sac. A follow-up ultrasound can be performed in approximately one week, to evaluate for the presence of a yolk sac or embryo, if clinically warranted. Small uterine fibroid. copyright 2010 [employer]- All Rights Reserved
--- NOTE | 2018-09-26 20:33 | ER Document Report ---
ED General - General Chief Complaint: Abdominal Pain Stated Complaint: ABDOMINAL PAIN Time Seen by Provider: 09/26/18 17:20 Mode of Arrival: Ambulatory Information source: Patient Notes: Patient presents to the emergency department with complaints of mid abdominal pain for the past 2 days. Reports she took 2 home test and they were both positive. Patient has history of 2 miscarriages G2, P0. Reports she just recently went off control. Denies vaginal bleeding. Denies fever vomiting diarrhea. No complaints of pain with void patient is happy smiling laughing no distress TRAVEL OUTSIDE OF THE [place] IN LAST 30 DAYS: No - HPI Onset: Other Pain Level: 4 - She is smiling laughing no distress Associated symptoms: None Exacerbated by: Denies Relieved by: Denies Similar symptoms previously: No Recently seen / treated by doctor: No - Related Data Allergies/Adverse Reactions: No Known Allergies Allergy (Verified 09/26/18 16:25) Past Medical History - General Information source: Patient Last Menstrual Period: unknown, just stopped BC - Social History Smoking Status: Never Smoker Chew tobacco use (# tins/day): No Frequency of alcohol use: None Drug Abuse: None Lives with: Family Family History: Reviewed & Not Pertinent Patient has suicidal ideation: No Patient has homicidal ideation: No Endocrine Medical History: Reports: Other - PCOS Renal/ Medical History: Denies: Hx Peritoneal Dialysis Surgical Hx: Negative - Immunizations Hx Diphtheria, Pertussis, Tetanus Vaccination: No Review of Systems - Review of Systems Notes: Review HPI for review of systems., All other systems negative Physical Exam - Vital signs Vitals: Temp Pulse Resp BP Pulse Ox 98.5 F 91 16 151/81 H 98 09/26/18 16:31 09/26/18 16:31 09/26/18 16:31 09/26/18 16:31 09/26/18 16:31 - Notes Notes: PHYSICAL EXAMINATION: GENERAL: Well-appearing and in no acute distress HEAD: Atraumatic, normocephalic. EYES: Pupils equal round extraocular movements intact, sclera anicteric, conjunctiva are normal. ENT: nares patent, . Moist mucous membranes. NECK: Normal range of motion, supple LUNGS: Respiratory rate even unlabored HEART: Regular rate ABDOMEN: Soft, no tenderness. No guarding, no rebound EXTREMITIES: Normal range of motion, NEUROLOGICAL: Cranial nerves grossly intact. SKIN: Warm, Dry, normal turgor, no rashes or lesions noted Course - Re-evaluation Re-evalutation: 09/26/18 20:43 Labs unremarkable hCG 1188. Ultrasound shows 5-week 1 day intrauterine gestational sac no embryo or yolk sac at this time. Patient and were instructed on results. Instructed on the importance of follow-up for hCG level and ultrasound in 1 week. She was also instructed to return for bleeding abdominal pain concerns she verbalized understanding to all instructions Dictation of this chart was performed using voice recognition software; therefore, there may be some unintended grammatical errors. - Vital Signs Vital signs: Temp Pulse Resp BP Pulse Ox 98.5 F 91 16 151/81 H 98 09/26/18 16:31 09/26/18 16:31 09/26/18 16:31 09/26/18 16:31 09/26/18 16:31 - Laboratory Result Diagrams: 09/26/18 17:48 09/26/18 17:48 Laboratory results interpreted by me: 09/26/18 09/26/18 17:48 17:48 BUN 6 L Beta HCG, Quant 1188.20 H Urine Urobilinogen 4.0 H - Diagnostic Test Radiology reviewed: Image reviewed, Reports reviewed - EXAM DESCRIPTION: US TRANSVAGINAL COMPLETED DATE/TME: 09/26/2018 17:22 CLINICAL HISTORY: 23 years, Female, ABD PAIN, 2+preg test, hx 2 miscarriages COMPARISON: None. TECHNIQUE: LIMITATIONS: None. FINDINGS: There is a probable intrauterine gestational sac, corresponding to 5 weeks 1 day gestational age, based on a sac diameter of 3.6 mm. There is no evidence of an embryo or yolk sac, at this time. There is a 7 mm posterior uterine fibroid. The ovaries are unremarkable. No free fluid. IMPRESSION: 5 week 1 day intrauterine gestational sac. A follow-up ultrasound can be performed in approximately one week, to evaluate for the presence of a yolk sac or embryo, if clinically warranted. Small uterine fibroid. copyright 2011 [employer]- All Rights Reserved Dictated by: CAROLYNN CAVAZOS MD 10 CC: SANDER NERI NP > 09/26/182011 Principal Contact Clerk Name: CAROLYNN CAVAZOS Provider ID: [id number] Discharge - Discharge Clinical Impression: Abdominal pain Qualifiers: Abdominal location: lower abdomen, unspecified Qualified Code(s): R10.30 - Lower abdominal pain, unspecified Qualifiers: Weeks of gestation: less than 8 weeks Qualified Code(s): Z3A.01 - Less than 8 weeks gestation of Condition: Stable Disposition: HOME, SELF-CARE Instructions: [facility], ([facility]) Additional Instructions: *You have been evaluated for abdominal pain, *Your ultrasound showed a 5-week 1 day intrauterine gestational sac with no evidence of embryo or yolk sac at this time *Your hCG level was 1188 plan follow-up hCG on SundaySeptember 28. You may contact the [facility] nurse at [phone] Sunday through Sunday from - for results. *Plan repeat ultrasound in 1 week. *Follow up with an [facility] within one week *Return to ED for worsening condition, changes, needs *Return to ED if not better in 24 hours Monitor your blood pressure. Your blood pressure was elevated today. This may be because you were anxious, in pain or because you need medication. It is important to follow up with your primary care provider for full evaluation. Forms: Elevated Blood Pressure, Follow-Up Laboratory Testing
== END 2018-09-26 20:45 | disposition home or self-care (01) ==
LOC: ER 16:24
DX: O26.91 Pregnancy related conditions, unspecified, first trimester (principal); R10.30 Lower abdominal pain, unspecified; Z3A.01 Less than 8 weeks gestation of pregnancy
CPT/HCPCS: 36415; 76817; 80053; 81001; 84702; 85025; 99284

== ENCOUNTER 2019-04-11 02:06 | Emergency (ER) | payer MEDICAID ==
[2019-04-11 02:12] VITALS: BP 129/82
[2019-04-11 02:49] LABS: APPEARANCE,URINE CLEAR; BILIRUBIN,URINE NEGATIVE (NEGATIVE); COLOR,URINE YELLOW; GLUCOSE, URINE NEGATIVE (NEGATIVE); KETONES,URINE NEGATIVE (NEGATIVE); LEUKOCYTE ESTERASE,URINE NEGATIVE (NEGATIVE); NITRITE,URINE NEGATIVE (NEGATIVE); PROTEIN,URINE NEGATIVE (NEGATIVE); URINE SPECIFIC GRAVITY 1.008
== END 2019-04-11 04:45 | disposition left against medical advice (07) ==
LOC: ER 02:06
DX: Z53.21 Procedure and treatment not carried out due to patient leaving prior to being seen by health care provider (principal)
CPT/HCPCS: 81001

== ENCOUNTER 2019-05-21 15:08 | Outpatient (CLI) | payer MEDICAID ==
--- NOTE | 2019-05-21 16:13 | Non Stress Test Report ---
Non Stress Test Datetime Report Generated by CPN: 05/21/2019 16:13 DEMOGRAPHIC EGA NST: 38.2 MONITORING Monitor Explained: Monitor Explained; Test Explained; Patient Verbalized Understanding Time on Monitor: 05/21/2019 15:16 Time off Monitor: 05/21/2019 15:36 NST Duration: 20 NST INTERVENTIONS NST Interventions: PO Hydration Physician Notified NST: A Porter CNm BABY A: [id number] BABY A Movement : Present Contraction Frequency : occasional FHR Baseline : 140 Accelerations : 15X15 Decelerations : None Variability : Moderate 6-25bpm NST Review: Meets Criteria for Reactive NST NST Review and Verified By : SAutry NST Results: Reactive NST REPORT Report Trigger: Send Report
== END 2019-05-21 15:42 | disposition home or self-care (01) ==
LOC: LC 15:08
PROVIDERS: ATTEND Obstetrics & Gynecology
PROC: 4A1HXCZ Monitoring of Products of Conception, Cardiac Rate, External Approach (ICD-10-PCS; principal; 2019-05-21)
DX: Z34.93 Encounter for supervision of normal pregnancy, unspecified, third trimester (principal); Z3A.38 38 weeks gestation of pregnancy
CPT/HCPCS: 59025

== ENCOUNTER 2019-05-23 23:20 | Inpatient (IN) | payer MEDICAID ==
[2019-05-24 00:13] LABS: APPEARANCE,URINE SLIGHTLY-CLOUDY; BILIRUBIN,URINE NEGATIVE (NEGATIVE); COLOR,URINE YELLOW; GLUCOSE, URINE NEGATIVE (NEGATIVE); KETONES,URINE 20 mg/dL (NEGATIVE); LEUKOCYTE ESTERASE,URINE SMALL (NEGATIVE); NITRITE,URINE NEGATIVE (NEGATIVE); PROTEIN,URINE NEGATIVE (NEGATIVE); URINE SPECIFIC GRAVITY 1.014
[2019-05-24] MEDS ORDERED: PENICILLIN G-K 5 MILLION UNIT VIAL ONE (00:16)
[2019-05-24] MEDS ORDERED: MISOPROSTOL 0.2 MG TABLET ONE (00:19)
[2019-05-24] MEDS ORDERED: LIDOCAINE 1% INJ-PF (10 MG/ML) 30 ML SDV ONE (00:19)
[2019-05-24] MEDS ORDERED: OXYTOCIN 10 UNIT/ML VIAL ONE (00:19)
[2019-05-24] MEDS ORDERED: OXYTOCIN/NORMAL SALINE 20 UNIT/1,000 ML RTUINJ ONE (00:20)
--- NOTE | 2019-05-24 00:35 | Admission Physical ---
Datetime Report Generated by CPN: 05/24/2019 00:35 CURRENT ADMISSION Chief Complaint: Uterine Contractions Indication for Induction: Not Applicable Admit Impression : Term, Intrauterine ; Active Labor Admit Plan: Admit to Unit; Initiate Labor Protocol ALLERGIES Medication Allergies: No Medication Allergies: No Known Allergies (05/21/2019) Latex: No Latex Allergies OBSTETRICAL HISTORY EDC: 06/02/2019 00:00 : 3 Para: 0 Term: 0 : 0 SAB: 2 IAB: 0 Ectopic: 0 Livin Cesareans: 0 VBACs: 0 Multiple Births: 0 PHYSICAL EXAM General: Normal HEENT: Normal Neurologic: Normal Thyroid: Normal Heart: Normal Lungs: Normal Breast: Normal Back: Normal Abdomen: Normal Genitourinary Exam: Normal Extremities: Normal DTRs: Normal Pelvic Type: Adequate Vital Signs: Reviewed; Within Normal Limits VAGINAL EXAM Dilatation: 10 Effacement: 100 Station: 2 MEMBRANES Pooling: Positive Membranes: Ruptured FETUS A EGA: 38.5 Monitoring: External US FHR- Baseline: 150 Variability: Moderate 6-25bpm Accelerations: 15X15 Decelerations: None FHR Category: Category I Estimated Weight (gm): 3500 Presentation: Vertex Admit Comment: patient delivered within 30 min of arrival INFORMED CONSENT Signature: with User ID: [email or web address]
[2019-05-24 00:36] LABS: URINE AMPHETAMINES SCREEN NEGATIVE; URINE BARBITURATES SCREEN NEGATIVE; URINE BENZODIAZEPINES SCREEN NEGATIVE; URINE COCAINE SCREEN NEGATIVE; URINE MARIJUANA (THC) SCREEN NEGATIVE; URINE METHADONE SCREEN NEGATIVE; URINE PHENCYCLIDINE SCREEN NEGATIVE
[2019-05-24] MEDS ORDERED: MAGNESIUM HYDROXIDE SUSP 30 ML UDCUP PO PRN (00:38)
[2019-05-24] MEDS ORDERED: NA PHOS,M-B/NA PHOS,DI-BA (ADULT) 133 ML ENEMA PR PRN (00:38)
[2019-05-24] MEDS ORDERED: PSEUDOEPHEDRINE HCL 30 MG TABLET PO PRN (00:38)
[2019-05-24] MEDS ORDERED: OXYTOCIN/NORMAL SALINE 20 UNIT/1,000 ML RTUINJ IV PRN (00:38)
[2019-05-24] MEDS ORDERED: DIPH/PERTUSS(ACELL)/TETANUS VAC/PF 0.5 ML SYR (>=10YO) IM PRN (00:38)
[2019-05-24] MEDS ORDERED: PROMETHAZINE HCL 25 MG SUPP.RECT PR PRN (00:38)
[2019-05-24] MEDS ORDERED: ACETAMINOPHEN 650 MG SUPP.RECT PR PRN (00:38)
[2019-05-24] MEDS ORDERED: PROMETHAZINE HCL 25 MG TABLET PO PRN (00:38)
[2019-05-24] MEDS ORDERED: MEASLES,MUMPS&RUBELLA VACC/PF 0.5 ML VIAL SUBCUT PRN (00:38)
[2019-05-24] MEDS ORDERED: PROMETHAZINE HCL INJ 25 MG/1 ML VIAL IV PRN (00:38)
[2019-05-24] MEDS ORDERED: ZOLPIDEM TARTRATE 5 MG TABLET PO PRN (00:38)
[2019-05-24] MEDS ORDERED: GLYCERIN/WITCH HAZEL LEAF 1 EACH MED..WIPE TP PRN (00:38)
[2019-05-24] MEDS ORDERED: DIBUCAINE 1% OINTMENT 28 GM TP PRN (00:38)
[2019-05-24] MEDS ORDERED: DIPHENHYDRAMINE HCL 25 MG CAPSULE PO PRN (00:38)
[2019-05-24] MEDS ORDERED: ACETAMINOPHEN WITH CODEINE #3 TABLET PO PRN ×2 (00:38)
[2019-05-24] MEDS ORDERED: BENZOCAINE/MENTHOL AEROSOL SPRAY 56 ML TOP PRN (00:38)
[2019-05-24 02:11] LABS: ABSOLUTE LYMPHOCYTES (AUTO) 0.8 10^3/uL (0.5-4.7); ABSOLUTE MONOCYTES (AUTO) 0.4 10^3/uL (0.1-1.4); ABSOLUTE NEUT (AUTO) 9.7 10^3/uL (1.7-8.2); BASOPHILS % (AUTO) 0.4 % (0-2); EOSINOPHILS % (AUTO) 0.1 % (0-6); HEMATOCRIT 36.7 % (36.0-47.0); LYMPHOCYTES % (AUTO) 7.3 % (13-45); MEAN CORPUSCULAR HGB CONC 35.4 g/dL (32.0-36.0); MEAN CORPUSCULAR VOLUME 93 fl (80-97); MONOCYTES % (AUTO) 3.7 % (3-13); PLATELET COUNT 164 10^3/uL (150-450); RED BLOOD COUNT 3.95 10^6/uL (3.72-5.28); RED CELL DISTRIBUTION WIDTH 13.1 % (11.5-14.0); SEGMENTED NEUTROPHILS % (AUTO) 88.5 % (42-78); TOTAL CELLS COUNTED % (AUTO) 100 %
[2019-05-24] MEDS ORDERED: IBUPROFEN 800 MG TABLET ONE (04:58)
[2019-05-24] MEDS: IBUPROFEN 800 MG TABLET PO SCH ×3 (09:53→21:52)
[2019-05-24] MEDS ORDERED: PRENATAL VITAMIN W DHA CAPSULE PO ONE (09:59)
[2019-05-24] MEDS ORDERED: FAMOTIDINE 20 MG TABLET ONE (09:59)
[2019-05-24] MEDS ORDERED: SENNOSIDES/DOCUSATE 8.6-50 MG 1 EACH TABLET ONE (09:59)
[2019-05-24] MEDS ORDERED: DOCUSATE SODIUM 100 MG CAPSULE ONE (09:59)
[2019-05-24] MEDS ORDERED: FERROUS SULFATE 325 MG TABLET PO ONE (09:59)
[2019-05-24] MEDS: DOCUSATE SODIUM 100 MG CAPSULE PO SCH (10:04)
[2019-05-24] MEDS: FERROUS SULFATE 325 MG TABLET PO SCH (10:04)
[2019-05-24] MEDS: SENNOSIDES/DOCUSATE 8.6-50 MG 1 EACH TABLET PO SCH (10:04)
[2019-05-24] MEDS: PRENATAL VITAMIN W DHA CAPSULE PO SCH (10:04)
[2019-05-24] MEDS: FAMOTIDINE 20 MG TABLET PO SCH ×2 (10:04→21:53)
--- NOTE | 2019-05-24 12:17 | Delivery Summary ---
Del Sum A-C Datetime Report Generated by CPN: 05/24/2019 12:17 DELIVERY PERSONNEL DELIVERY PERSONNEL: [id number] Delivery Doctor:: Flora Heath MD Labor and Delivery Nurse:: COLIN Padilla Labor and Delivery Nurse:: Indy Dan RN Section Maintainer:: Esthela Whalen RN Nursery Nurse:: Windy Gloria RN Shaft Tender/BLACK POWDER GLAZING OPERATOR: Dalila Cardona, ST MATERNAL INFORMATION Delivery Anesthesia: None Medications After Delivery: Pitocin Drip 20 Units/1000ml NSS Estimated Blood Loss (ml): 200 Delivery QBL: 180 Maternal Complications: Precipitous Labor (<3hrs) LABOR SUMMARY EDC: 06/02/2019 00:00 No. Babies in Womb: 1 Attempted: No Labor Anesthesia: Intrathecal LABOR INFORMATION Reason for Induction: Not Applicable Onset of Labor: 05/23/2019 22:50 Complete Dilatation: 05/24/2019 00:17 Oxytocin: N/A Group B Beta Strep: POSITIVE Antibiotics # of Doses: 1 Antibiotics Time of Last Dose: 0018 Name of Antibiotic Given: PCN Steroids Given: None Reason Steroids Not Administered: Not Applicable MEMBRANES Membranes Rupture Method: Spontaneous Rupture of Membranes: 05/24/2019 00:22 Length of Rupture (hr): 0.03 Amniotic Fluid Color: Moderate Meconium Amniotic Fluid Amount: Moderate Amniotic Fluid Odor: Normal STAGES OF LABOR Stage 1 hr: 1 Stage 1 min: 27 Stage 2 hr: 0 Stage 2 min: 7 Stage 3 hr: 0 Stage 3 min: 3 Total Time in Labor hr: 1 Total Time in Labor min: 37 VAGINAL DELIVERY Episiotomy: None Laceration #1: None Laceration Extension #1: N/A Laceration Repair: Not Applicable Sponge Count Correct: N/A Sharps Count Correct: N/A CSECTION DELIVERY Primary Indication: N/A Secondary Indication: N/A CSection Incidence: N/A Labor: N/A Elective: N/A CSection Incision: N/A BABY A INFORMATION Delivery Date/Time: 05/24/2019 00:24 Method of Delivery: Vaginal Nurse Controlled Delivery: No Born in Route : No : N/A Forceps: N/A Vacuum Extraction: N/A Shoulder Dystocia : No PRESENTATION/POSITION BABY A Presentation: Cephalic Cephalic Presentation: Vertex Vertex Position: Right Occipital Anterior Breech Presentation: N/A PLACENTA INFORMATION BABY A Placenta Delivery Time : 05/24/2019 00:27 Placenta Method of Delivery: Spontaneous Placenta Status: Delivered SCORES BABY A Heart Rate 1 min: >100 bpm Resp Effort 1 min: Slow, Irregular Reflex Irritability 1 min: Cough or Sneeze or Pulls Away Muscle Tone 1 min: Active Motion Color 1 min: Body [place], Extremities Blue Resuscitation Effort 1 min: Tactile Stimulation SCORE 1 MIN: 8 Heart Rate 5 min: >100 bpm Resp Effort 5 min: Good Cry Reflex Irritability 5 min: Cough or Sneeze or Pulls Away Muscle Tone 5 min: Active Motion Color 5 min: Body [place], Extremities Blue Resuscitation Effort 5 min: Tactile Stimulation SCORE 5 MIN: 9 INFORMATION BABY A Gestational Age at Delivery: 38.5 Gestational Status: Early Term- 37- 38.6 Weeks Outcome : Liveborn Infant Condition : Stable Infant Sex: Female IDENTIFICATION BABY A Infant Verification Date/Time: 05/24/2019 01:19 ID Band Number: [id number] Mother's Name Verified: Yes Infant RN Verifying : D Bellavance RN/L Parlor BILING[employer]CHO[employer] TEACHER WEIGHT/LENGTH BABY A Infant Birthweight (gm): 2538 Infant Weight (lb): 5 Weight (oz): 10 Infant Length (in): 18.00 Infant Length (cm): 45.72 CORD INFORMATION BABY A No. Cord Vessels: 3 Nuchal Cord : N/A Cord Blood Taken: Yes-For Storage (Mom's Blood type +) Suction: Mouth; Nose ASSESSMENT BABY A Physical Findings at Delivery: Within Normal Limits Physical Findings- Other: See full nursery braille typist Skin to Skin: Yes Skin to Skin Time (min): 45 BABY B INFORMATION : N/A SIGNATURES Signature: with User ID: Bren
[2019-05-25] MEDS: IBUPROFEN 800 MG TABLET PO SCH ×3 (05:10→22:28)
[2019-05-25 08:12] LABS: HEMATOCRIT 32.4 % (36.0-47.0); HEMOGLOBIN 11.4 g/dL (12.0-15.5); MEAN CORPUSCULAR HGB CONC 35.3 g/dL (32.0-36.0); MEAN CORPUSCULAR VOLUME 94 fl (80-97); PLATELET COUNT 153 10^3/uL (150-450); RED BLOOD COUNT 3.46 10^6/uL (3.72-5.28); RED CELL DISTRIBUTION WIDTH 13.6 % (11.5-14.0); WHITE BLOOD COUNT 7.7 10^3/uL (4.0-10.5)
[2019-05-25] MEDS: FERROUS SULFATE 325 MG TABLET PO SCH ×3 (08:17→17:32)
[2019-05-25] MEDS: DOCUSATE SODIUM 100 MG CAPSULE PO SCH ×3 (08:17→17:32)
[2019-05-25] MEDS: SENNOSIDES/DOCUSATE 8.6-50 MG 1 EACH TABLET PO SCH (10:14)
[2019-05-25] MEDS: FAMOTIDINE 20 MG TABLET PO SCH ×2 (10:14→22:28)
[2019-05-25] MEDS: PRENATAL VITAMIN W DHA CAPSULE PO SCH (10:14)
--- NOTE | 2019-05-25 10:59 | PDOC PROGRESS REPORT ---
Subjective-OB Progress Note for:: 05/25/19 - PP Day #1, doing well, UOB, voiding, O+, Rubella Immnue, Physical Exam (OB) Vital Signs: Temp Pulse Resp BP Pulse Ox 97.8 F 81 18 134/84 H 100 05/25/19 07:21 05/25/19 07:21 05/25/19 07:21 05/25/19 07:21 05/25/19 07:21 Intake & Output 05/24/19 05/25/19 05/26/19 06:59 06:59 06:59 Weight 90.6 kg - General General Appearance: Appears well, Alert - PIH/Pre-Eclampsia DTR's: 1 + Clonus: Negative Headache: Absent Epigastric Pain: No Visual Changes: No - Lochia Lochia Amount: Small 10-25 ml Lochia Color: Rubra/Red - Abdomen Description: Soft Hernia Present: No Fundal Description: Firm, Midline Fundal Height: u/u - u/2 - Respiratory Respiratory Status: No respiratory distress - Abdominal Distension: No distension Tenderness: Nontender - Genitourinary Genitourinary Note: voiding - Extremities Upper extremity: Normal inspection Lower extremities: Edema - Neurological Cognition: Normal Orientation: AAOx4 - Psychological Associated symptoms: Normal affect, Normal mood Objective-Diagnostic Laboratory: 05/25/19 07:53 05/25/19 07:53 WBC 7.7 RBC 3.46 L Hgb 11.4 L Hct 32.4 L MCV 94 MCH 33.0 MCHC 35.3 RDW 13.6 Plt Count 153 Assessment and Plan(PN) - Assessment and Plan (1) Carrier of group B Streptococcus Is this a current diagnosis for this admission?: Yes (2) Precipitous delivery, delivered (current hospitalization) Is this a current diagnosis for this admission?: Yes (3) Vaginal delivery Is this a current diagnosis for this admission?: Yes - Time Spent with Patient Time with patient: Less than 15 minutes Medications reviewed and adjusted accordingly: Yes - Disposition Anticipated Discharge: Home Within: within 24 hours
[2019-05-26] MEDS: IBUPROFEN 800 MG TABLET PO SCH (06:47)
[2019-05-26 07:36] VITALS: BP 129/85
--- NOTE | 2019-05-26 09:06 | PDOC PROGRESS REPORT ---
Subjective-OB Progress Note for:: 05/26/19 Subjective: Doing well,baby and hsb in room, breast feeding, scant bleeding, voiding, eating well, no c/o Physical Exam (OB) Vital Signs: Temp Pulse Resp BP Pulse Ox 97.6 F 84 16 129/85 H 100 05/26/19 07:35 05/26/19 07:35 05/26/19 07:35 05/26/19 07:35 05/26/19 07:35 Intake & Output 05/25/19 05/26/19 05/27/19 06:59 06:59 06:59 Intake Total 1140 Balance 1140 Weight 90.6 kg - PIH/Pre-Eclampsia DTR's: 1 + Clonus: Negative Headache: Absent Epigastric Pain: No Visual Changes: No - Lochia Lochia Amount: Small 10-25 ml Lochia Color: Rubra/Red - Abdomen Description: Soft, Round Hernia Present: No Fundal Description: Firm, Midline Fundal Height: u/u - u/2 Objective-Diagnostic Laboratory: 05/25/19 07:53 Assessment and Plan(PN) - Assessment and Plan (1) Vaginal delivery Is this a current diagnosis for this admission?: Yes (2) Carrier of group B Streptococcus Is this a current diagnosis for this admission?: Yes (3) Precipitous delivery, delivered (current hospitalization) Is this a current diagnosis for this admission?: Yes - Time Spent with Patient Time with patient: Less than 15 minutes Medications reviewed and adjusted accordingly: Yes - Disposition Anticipated Discharge: Home Within: within 24 hours - home today with baby
--- NOTE | 2019-05-26 09:15 | PDOC DISCHARGE SUMMARY ---
Impression - Admit/DC Date/PCP Admission Date/Primary Care Provider: 05/24/19 00:20 BRITTANY REDD MD Discharge Date: 05/19/19 - Discharge Diagnosis (1) Vaginal delivery Is this a current diagnosis for this admission?: Yes (2) Carrier of group B Streptococcus Is this a current diagnosis for this admission?: Yes (3) Precipitous delivery, delivered (current hospitalization) Is this a current diagnosis for this admission?: Yes - Additional Information Resuscitation Status: Full Code Discharge Diet: As Tolerated, Regular Discharge Activity: Activity As Tolerated, Pelvic Rest Referrals: [id number] [Provider Group] (rtc wha 1 week to check BP) Home Medications: Vit/Iron Fum/Folic AC [ Tablet] 1 tab PO DAILY 09/09/17 HPI Gestational Age: 38.5 Reason(s) for Admission: Onset of Labor, Group B Strep Positive Procedures: Ultrasound Intrapartum Procedure(s): Spontaneous Vaginal Delivery - precipitous labor Hospital Course Hospital Course: routine pp Results Laboratory Results: WBC 7.7 10^3/uL (4.0-10.5) 05/25/19 07:53 RBC 3.46 10^6/uL (3.72-5.28) L 05/25/19 07:53 Hgb 11.4 g/dL (12.0-15.5) L 05/25/19 07:53 Hct 32.4 % (36.0-47.0) L 05/25/19 07:53 MCV 94 fl (80-97) 05/25/19 07:53 MCH 33.0 pg (27.0-33.4) 05/25/19 07:53 MCHC 35.3 g/dL (32.0-36.0) 05/25/19 07:53 RDW 13.6 % (11.5-14.0) 05/25/19 07:53 Plt Count 153 10^3/uL (150-450) 05/25/19 07:53 Lymph % (Auto) 7.3 % (13-45) L 05/24/19 02:01 [place] % (Auto) 3.7 % (3-13) 05/24/19 02:01 Eos % (Auto) 0.1 % (0-6) 05/24/19 02:01 Baso % (Auto) 0.4 % (0-2) 05/24/19 02:01 Absolute Neuts (auto) 9.7 10^3/uL (1.7-8.2) H 05/24/19 02:01 Absolute Lymphs (auto) 0.8 10^3/uL (0.5-4.7) 05/24/19 02:01 Absolute Monos (auto) 0.4 10^3/uL (0.1-1.4) 05/24/19 02:01 Absolute Eos (auto) 0.0 10^3/uL (0.0-0.6) 05/24/19 02:01 Absolute Basos (auto) 0.0 10^3/uL (0.0-0.2) 05/24/19 02:01 Seg Neutrophils % 88.5 % (42-78) H 05/24/19 02:01 Urine Color YELLOW 05/23/19 23:30 Urine Appearance SLIGHTLY-CLOUDY 05/23/19 23:30 Urine pH 6.0 (5.0-9.0) 05/23/19 23:30 Ur Specific [place] 1.014 05/23/19 23:30 Urine Protein NEGATIVE mg/dL (NEGATIVE) 05/23/19 23:30 Urine Glucose (UA) NEGATIVE mg/dL (NEGATIVE) 05/23/19 23:30 Urine Ketones 20 mg/dL (NEGATIVE) H 05/23/19 23:30 Urine Blood SMALL (NEGATIVE) H 05/23/19 23:30 Urine Nitrite NEGATIVE (NEGATIVE) 05/23/19 23:30 Urine Bilirubin NEGATIVE (NEGATIVE) 05/23/19 23:30 Urine Urobilinogen 2.0 mg/dL (<2.0) H 05/23/19 23:30 Ur Leukocyte Esterase SMALL (NEGATIVE) H 05/23/19 23:30 Urine Ascorbic Acid NEGATIVE (NEGATIVE) 05/23/19 23:30 Urine Opiates Screen NEGATIVE 05/23/19 23:30 Urine Methadone Screen NEGATIVE 05/23/19 23:30 Ur Barbiturates Screen NEGATIVE 05/23/19 23:30 Ur Phencyclidine Scrn NEGATIVE 05/23/19 23:30 Ur Amphetamines Screen NEGATIVE 05/23/19 23:30 U Benzodiazepines Scrn NEGATIVE 05/23/19 23:30 Urine Cocaine Screen NEGATIVE 05/23/19 23:30 U Marijuana (THC) Screen NEGATIVE 05/23/19 23:30 RPR NONREACTIVE (NONREACTIVE) 05/24/19 02:01 Blood Type O POSITIVE 05/24/19 02:01 Antibody Screen NEGATIVE 05/24/19 02:01 Plan Health Concerns: borderline BP Plan of Treatment: routine, check BP in 1 week Goals: no complications Time Spent: Less than 30 Minutes
[2019-05-26] MEDS: DOCUSATE SODIUM 100 MG CAPSULE PO SCH (09:35)
[2019-05-26] MEDS: FERROUS SULFATE 325 MG TABLET PO SCH (09:35)
[2019-05-26] MEDS: FAMOTIDINE 20 MG TABLET PO SCH (09:35)
[2019-05-26] MEDS: PRENATAL VITAMIN W DHA CAPSULE PO SCH (09:35)
[2019-05-26] MEDS: SENNOSIDES/DOCUSATE 8.6-50 MG 1 EACH TABLET PO SCH (09:35)
== END 2019-05-26 11:30 | disposition home or self-care (01) | DRG 807 ==
LOC: LC 23:20 → LR 05-24 00:20 → 2S 05-24 12:21
PROVIDERS: ADMIT Obstetrics & Gynecology; ATTEND Obstetrics & Gynecology
PROC: 10E0XZZ Delivery of Products of Conception, External Approach (ICD-10-PCS; principal; 2019-05-24)
DX: O62.3 Precipitate labor (principal); Z37.0 Single live birth; O99.824 Streptococcus B carrier state complicating childbirth; O77.0 Labor and delivery complicated by meconium in amniotic fluid; Z3A.38 38 weeks gestation of pregnancy
CPT/HCPCS: 36415; 59414; 80307; 81005; 85025; 85027; 86592; 86850; 86900; 86901; J2540; J2590; J3490

== ENCOUNTER 2020-03-02 16:08 | Outpatient (CLI) | payer MEDICAID ==
--- NOTE | 2020-03-02 18:46 | Non Stress Test Report ---
Non Stress Test Datetime Report Generated by CPN: 03/02/2020 18:46 DEMOGRAPHIC EGA NST: 34.6 EGA NST: 34.6 INDICATION Indication for Study (NST) Other: NonReactive NST in office VITAL SIGNS Temperature - NST: 98.5 Pulse - NST: 72 RESP - NST: 18 NBPSYS NST: 126 NBPDIA NST: 77 MONITORING Monitor Explained: Monitor Explained; Test Explained; Patient Verbalized Understanding Time on Monitor: 03/02/2020 16:30 Time off Monitor: 03/02/2020 17:19 NST Duration: 49 NST INTERVENTIONS NST Interventions: PO Hydration Physician Notified NST: Caren Porter/Dr Kumar BABY A: [id number] BABY A Movement : Present Contraction Frequency : 0 FHR Baseline : 130 Accelerations : 15X15 Decelerations : None Variability : Moderate 6-25bpm NST Review: Meets Criteria for Reactive NST NST Review and Verified By : Elvia [place] [facility] (Annotations: Data stored by [facility] on behalf of user) NST Results: Reactive NST REPORT Report Trigger: Send Report
== END 2020-03-02 17:43 | disposition home or self-care (01) ==
LOC: LC 16:08
PROVIDERS: ATTEND Obstetrics & Gynecology
DX: O36.8130 Decreased fetal movements, third trimester, not applicable or unspecified (principal); Z3A.34 34 weeks gestation of pregnancy

== ENCOUNTER 2020-03-23 16:32 | Outpatient (CLI) | payer MEDICAID ==
--- NOTE | 2020-03-23 17:14 | Non Stress Test Report ---
Non Stress Test Datetime Report Generated by CPN: 03/23/2020 17:13 DEMOGRAPHIC EGA NST: 37.6 INDICATION Indication for Study (NST) Other: repeat NST from office VITAL SIGNS Temperature - NST: 97.8 Pulse - NST: 90 RESP - NST: 17 NBPSYS NST: 123 NBPDIA NST: 81 MONITORING Monitor Explained: Monitor Explained; Test Explained; Patient Verbalized Understanding Time on Monitor: 03/23/2020 16:47 Time off Monitor: 03/23/2020 17:10 NST Duration: 23 NST INTERVENTIONS NST Interventions: PO Hydration Physician Notified NST: Dr. Kumar Physician Notified NST: Dr Kumar BABY A: [id number] BABY A Movement : Present Contraction Frequency : 0 FHR Baseline : 130 Accelerations : 15X15 Decelerations : None Variability : Moderate 6-25bpm NST Review: Meets Criteria for Reactive NST NST Review and Verified By : GINETTE Mccartney Results: Reactive NST REPORT Report Trigger: Send Report
== END 2020-03-23 17:18 | disposition home or self-care (01) ==
LOC: LC 16:32
PROVIDERS: ATTEND Obstetrics & Gynecology
DX: Z34.93 Encounter for supervision of normal pregnancy, unspecified, third trimester (principal)
CPT/HCPCS: 59025; 94760

== ENCOUNTER 2020-03-24 14:03 | Inpatient (IN) | payer MEDICAID ==
[2020-03-24 16:40] LABS: APPEARANCE,URINE CLEAR; BILIRUBIN,URINE NEGATIVE (NEGATIVE); COLOR,URINE YELLOW; GLUCOSE, URINE NEGATIVE (NEGATIVE); KETONES,URINE TRACE mg/dL (NEGATIVE); LEUKOCYTE ESTERASE,URINE NEGATIVE (NEGATIVE); NITRITE,URINE NEGATIVE (NEGATIVE); PROTEIN,URINE NEGATIVE (NEGATIVE); URINE SPECIFIC GRAVITY 1.016
[2020-03-24 16:56] LABS: URINE AMPHETAMINES SCREEN NEGATIVE; URINE BARBITURATES SCREEN NEGATIVE; URINE BENZODIAZEPINES SCREEN NEGATIVE; URINE COCAINE SCREEN NEGATIVE; URINE MARIJUANA (THC) SCREEN NEGATIVE; URINE METHADONE SCREEN NEGATIVE; URINE PHENCYCLIDINE SCREEN NEGATIVE
[2020-03-24] MEDS ORDERED: OXYTOCIN 10 UNIT/ML VIAL ONE (17:05)
--- NOTE | 2020-03-24 17:05 | Admission Physical ---
Datetime Report Generated by CPN: 03/24/2020 17:04 CURRENT ADMISSION Hx Assessment: The History has been Reviewed and is Current Chief Complaint: Uterine Contractions Indication for Induction: Not Applicable Admit Impression : Term, Intrauterine ; Active Labor Admit Plan: Admit to Unit; Initiate Labor Protocol ALLERGIES Medication Allergies: No Medication Allergies: No Known Allergies (03/24/2020) Latex: No Latex Allergies OBSTETRICAL HISTORY EDC: 04/07/2020 00:00 : 4 Para: 1 Term: 1 : 0 SAB: 2 IAB: 0 Livin SEE RECORDS Alcohol: Yes Alcohol Comments: alcohol use prior to confirmation of at 20weeks Marijuana : No Cocaine: No Other Illicit Drugs: No Cigarettes: Never Smoker. [id number] PHYSICAL EXAM General: Normal HEENT: Deferred Neurologic: Normal Thyroid: Normal Heart: Normal Lungs: Normal Breast: Normal Back: Normal Abdomen: Normal Genitourinary Exam: Normal Extremities: Normal DTRs: Normal Pelvic Type: Adequate Physical Exam Comments: GBS + FETUS A EGA: 38.0 Monitoring: External US Accelerations: 15X15 Decelerations: None FHR Category: Category I Presentation: Vertex Admit Comment: pt came in with irregular uc's, walked x 1 hour, rechecked and was a rim, 100/vtx/+1, Cat 1 strip, DrPhylicia Noel aware of pt status Anticipate PLANS FOR LABOR AND DELIVERY Labor and Delivery: None Pain Management: None Feeding Preference: Formula Benefit of Breast Feed Discussed: Yes Circumcision: No INFORMED CONSENT Assignment: Cindy Noel MD Signature: with User ID: Hunter : with User ID: Hunter
[2020-03-24] MEDS ORDERED: MISOPROSTOL 0.2 MG TABLET ONE (17:06)
[2020-03-24] MEDS ORDERED: PENICILLIN G-K 5 MILLION UNIT VIAL ONE (17:06)
[2020-03-24] MEDS ORDERED: OXYTOCIN/0.9 % SODIUM CHLORIDE 30 UNIT/500 ML RTUINJ ONE (17:06)
[2020-03-24] MEDS ORDERED: LIDOCAINE 1% INJ-PF (10 MG/ML) 30 ML SDV ONE (17:06)
[2020-03-24] MEDS ORDERED: DIPH/PERTUSS(ACELL)/TETANUS VAC/PF 0.5 ML SYR (>=10YO) IM PRN (17:48)
[2020-03-24] MEDS ORDERED: MAGNESIUM HYDROXIDE SUSP 30 ML UDCUP PO PRN (17:48)
[2020-03-24] MEDS ORDERED: ACETAMINOPHEN 650 MG SUPP.RECT PR PRN (17:48)
[2020-03-24] MEDS ORDERED: MEASLES,MUMPS&RUBELLA VACC/PF 0.5 ML VIAL SUBCUT PRN (17:48)
[2020-03-24] MEDS ORDERED: ACETAMINOPHEN WITH CODEINE #3 TABLET PO PRN ×2 (17:48)
[2020-03-24] MEDS ORDERED: NA PHOS,M-B/NA PHOS,DI-BA (ADULT) 133 ML ENEMA PR PRN (17:48)
[2020-03-24] MEDS ORDERED: GLYCERIN/WITCH HAZEL LEAF 1 EACH MED..WIPE TP PRN (17:48)
[2020-03-24] MEDS ORDERED: PSEUDOEPHEDRINE HCL 30 MG TABLET PO PRN (17:48)
[2020-03-24] MEDS ORDERED: DIPHENHYDRAMINE HCL 25 MG CAPSULE PO PRN (17:48)
[2020-03-24] MEDS ORDERED: BENZOCAINE/MENTHOL AEROSOL SPRAY 56 ML TOP PRN (17:48)
[2020-03-24] MEDS ORDERED: PROMETHAZINE HCL 25 MG SUPP.RECT PR PRN (17:48)
[2020-03-24] MEDS ORDERED: PROMETHAZINE HCL INJ 25 MG/1 ML VIAL IV PRN (17:48)
[2020-03-24] MEDS ORDERED: DIBUCAINE 1% OINTMENT 28 GM TP PRN (17:48)
[2020-03-24] MEDS ORDERED: PROMETHAZINE HCL 25 MG TABLET PO PRN (17:48)
[2020-03-24] MEDS ORDERED: MISOPROSTOL 0.2 MG TABLET PR PRN (17:48)
[2020-03-24] MEDS ORDERED: OXYTOCIN/0.9 % SODIUM CHLORIDE 30 UNIT/500 ML RTUINJ IV PRN (17:48)
[2020-03-24] MEDS ORDERED: RINGERS SOLUTION,LACTATED 1,000 ML IV PRN (18:30)
[2020-03-24] MEDS ORDERED: RINGERS SOLUTION,LACTATED 1,000 ML IV ONE (18:30)
[2020-03-24] MEDS ORDERED: PENICILLIN G POTASSIUM 5,000,000 UNIT in DEXTROSE 5%-WATER 100 ML IV ONE (18:30)
[2020-03-24 19:04] LABS: ABSOLUTE BASOPHILS # (AUTO) 0.1 10^3/uL (0.0-0.2); ABSOLUTE LYMPHOCYTES (AUTO) 0.8 10^3/uL (0.5-4.7); ABSOLUTE MONOCYTES (AUTO) 0.4 10^3/uL (0.1-1.4); ABSOLUTE NEUT (AUTO) 9.1 10^3/uL (1.7-8.2); BASOPHILS % (AUTO) 0.5 % (0-2); HEMATOCRIT 39.6 % (36.0-47.0); HEMOGLOBIN 13.8 g/dL (12.0-15.5); LYMPHOCYTES % (AUTO) 7.3 % (13-45); MEAN CORPUSCULAR HEMOGLOBIN 32.9 pg (27.0-33.4); MEAN CORPUSCULAR HGB CONC 34.8 g/dL (32.0-36.0); MEAN CORPUSCULAR VOLUME 95 fl (80-97); MONOCYTES % (AUTO) 3.5 % (3-13); PLATELET COUNT 156 10^3/uL (150-450); RED BLOOD COUNT 4.19 10^6/uL (3.72-5.28); RED CELL DISTRIBUTION WIDTH 12.9 % (11.5-14.0); SEGMENTED NEUTROPHILS % (AUTO) 88.7 % (42-78); TOTAL CELLS COUNTED % (AUTO) 100 %; WHITE BLOOD COUNT 10.3 10^3/uL (4.0-10.5)
--- NOTE | 2020-03-24 19:41 | Birth Certificate Data ---
Cert Data Datetime Report Generated by CPN: 03/24/2020 19:41 CERTIFICATE DATA Delivery Provider: Lizzy Henry CNM (03/02/2020 17:21:Gema Vazquez RN) 47a. Care: Yes (03/02/2020 17:21:Gema Vazquez RN) 48a. Number of Prev Live Births: 1 (03/02/2020 17:21:Gema Vazquez RN) 48b. Now Livin (03/02/2020 17:21:Gema Vazquez RN) 48c. Live Births Now : 0 (03/02/2020 17:21:QS system process) 48d. Date of Last Live : 05/24/2019 00:00 (03/02/2020 17:21:Gema Vazquez RN) 48e. Losses: 2 (03/02/2020 17:21:Gema Vazquez RN) RISK FACTORS IN THIS 49a. Diabetes: No (03/02/2020 17:21:Gema Vazquez RN) 49b. Hypertension: No (03/02/2020 17:21:Gema Vazquez RN) 49c. Previous Births: 0 (03/02/2020 17:21:Gema Vazquez RN) 49d. Stillborns: No (03/02/2020 17:21:Gema Vazquez RN) 49d. IUGR: Yes (03/02/2020 17:21:Gema Vazquez RN) 49e. Infertility Treatment: No (03/02/2020 17:21:Gema Vazquez RN) Mother's Height 50b. Height Inches: 66 (03/24/2020 15:22:QS system process) Mother's Weight 51a. Pre- Weight (lbs): 190 (03/02/2020 17:21:Gema Vazquez RN) 51b. Weight at Delivery (lbs): 191 (03/24/2020 15:22:QS system process) Infections Present/Treated 53a. Gonorrhea: No (03/02/2020 17:21:Gema Vazquez RN) Results this Hospital Visit : Negative (03/02/2020 17:21:Gema Vazquez RN) 53b. Syphilis: No (03/02/2020 17:21:Gema Vazquez RN) 53c. Chlamydia: No (03/02/2020 17:21:Gema Vazquez RN) Results this Hospital Visit: Negative (03/02/2020 17:21:Gema Vazquez RN) 53d. Hepatitis B: No (03/02/2020 17:21:Gema Vazquez RN) Results this Hospital Visit: Negative (03/02/2020 17:21:Gema Vazquez RN) 53h. Mother Tested for HBsAG: Yes (03/02/2020 17:21:Gema Vazquez RN) 53j. Test Result: Negative (03/02/2020 17:21:Gema Vazquez RN) Obstetric Procedures 54a, b, c. Obstetric Procedures: Ultrasound; NST; BPP (03/02/2020 17:21:Gema Vazquez RN) Cigarette Smoking Cigarette Smoking: Never Smoker. [id number] (03/02/2020 17:21:Gema Vazquez RN) 55a. 3 Months Before Preg - Ci (03/02/2020 17:21:Gema Vazquez RN) 55a. Packs: 0 (03/02/2020 17:21:Gema Vazquez RN) 55b. 1st Trimester of Preg- Ci (03/02/2020 17:21:Gema Vazquez RN) 55b. Packs: 0 (03/02/2020 17:21:Gema Vazquez RN) 55c. 2nd Trimester of Preg- Ci (03/02/2020 17:21:Gema Vazquez RN) 55c. Packs: 0 (03/02/2020 17:21:Gema Vazquez RN) 55d. 3rd Trimester of Preg- Ci (03/02/2020 17:21:Gema Vazquez RN) 55d. Packs: 0 (03/02/2020 17:21:Gema Vazquez RN) Onset of Labor 56a. PROM >12 Hrs: 0.10 (03/02/2020::QS system process) 56b. Precipitous Labor <3 Hrs: 9 (03/02/2020::QS system process) 56c. Prolonged Labor > 20 Hrs: 9 (03/02/2020:21:QS system process) 57a. Induction of Labor: N/A (03/02/2020 17::Gema Vazquez RN) 57c. Non-Vertex Presentation A: Vertex (03/02/2020 17::Gema Vazquez RN) 57d. Steroids - Lung Mat: None (03/02/2020 17::Gema Vazquez RN) 57d. Steroids - Lung Mat: Not Applicable (03/02/2020 17::Gema Vazquez RN) 57e. Antibiotics During Labor: 03/24/2020 17:11 (03/02/2020 17::Gema Vazquez RN) 57f. Mat [place] or Temp >100.4: 98.5 (03/02/2020 17:21:Gema Vazquez RN) 57g. Moderate/Heavy Meconium: Clear (03/24/2020 17:26:Gema Vazquez RN) 57h. Intolerance of Labor: N/A (03/02/2020 17:21:Gema Vazquez RN) : N/A (03/02/2020 17:21:Gema Vazquez RN) 57i. Epidural/Spinal Anesthesia: None (03/02/2020 17::Gema Vazquez RN) Method of Delivery 58a. Forceps - Unsuccessful A: N/A (03/02/2020 17:21:Geam Vazquez RN) 58b. Vacuum - Unsuccessful A: N/A (03/02/2020 17:21:Gema Vazquez RN) 58c. Presentation at 58c. Presentation at - A : Vertex (03/02/2020 17:21:Gema Vazquez RN) 58c. Presentation at - A : N/A (03/02/2020 17:21:Gema Vazquez RN) 58c. Presentation at - A : Cephalic (03/24/2020 17:26:Gema Vazquez RN) Final Route and Method of Del 58d. Baby A Route/Delivery: Vaginal (03/24/2020 17:32:Gema Vazquez RN) 58e. Trial of Labor Attempted: No (03/02/2020 17:21:Gema Vazquez RN) 58e. Trial of Labor Attempted A: N/A (03/02/2020 17:21:Gema Vazquez RN) Maternal Morbidity 59b. 3rd or 4th Degree Lacs: None (03/02/2020 17:21:Gema Vazquez RN) Birthweight Baby A: 2528 (03/02/2020 17:21:Gema Vazquez RN) 60a. Pounds : 5 (03/02/2020 17:21:QS system process) 60b. Ounces: 9 (03/02/2020 17:21:QS system process) 61. GA at Delivery Baby A: 38.0 (03/02/2020 17:21:Gema Vazquez RN) : Early Term- 37- 38.6 Weeks (03/02/2020 17:21:QS system process) 62a. 5 Minute Baby A: 9 (03/02/2020 17:21:QS system process)
--- NOTE | 2020-03-24 19:41 | Delivery Summary ---
Del Sum A-C Datetime Report Generated by CPN: 03/24/2020 19:41 DELIVERY PERSONNEL DELIVERY PERSONNEL: [id number] Delivery Doctor:: Lizzy Henry CNM Labor and Delivery Nurse:: Gema Vazquez RN Nursery Nurse:: Julisa Sullivan RN Senior Gis Analyst/ASSISTED LIVING NURSING DIRECTOR: Isaura Ulloa, ST MATERNAL INFORMATION Delivery Anesthesia: None Medications After Delivery: Pitocin 30 Units in 500ml NS/D5W Delivery QBL: 100 Maternal Complications: None Provider Comments: Progresed quickly, AROM, clear fluid and started pushing, viable male over intact perineum, baby placed on mothers abd, cord clamped and cut after 2 minutes by FOB, spont delivery of small placenta, nursery in attendance at delivery, FFFM, mild uterine atony, massage, IV Pitocin and cytotec 1000mcg via rectum, Dr. Noel in to evaluate cervix and atony. Baby and mom remains in recovery in stable condition (Annotations: Data stored by CPN on behalf of user) LABOR SUMMARY EDC: 04/07/2020 00:00 No. Babies in Womb: 1 Attempted: No Labor Anesthesia: None LABOR INFORMATION Reason for Induction: Not Applicable Onset of Labor: 03/24/2020 08:30 Complete Dilatation: 03/24/2020 17:26 Oxytocin: N/A Group B Beta Strep: positive Antibiotics # of Doses: 1 Antibiotics Time of Last Dose: 03/24/2020 17:11 Steroids Given: None Reason Steroids Not Administered: Not Applicable MEMBRANES Membranes Rupture Method: Artificial Rupture of Membranes: 03/24/2020 17:26 Length of Rupture (hr): 0.10 Amniotic Fluid Color: Clear Amniotic Fluid Amount: Moderate Amniotic Fluid Odor: None STAGES OF LABOR Stage 1 hr: 8 Stage 1 min: 56 Stage 2 hr: 0 Stage 2 min: 6 Stage 3 hr: 0 Stage 3 min: 4 Total Time in Labor hr: 9 Total Time in Labor min: 6 VAGINAL DELIVERY Episiotomy: None Laceration #1: None Laceration Extension #1: N/A Laceration Repair: Not Applicable Sponge Count Correct: N/A Sharps Count Correct: N/A CSECTION DELIVERY Primary Indication: N/A Secondary Indication: N/A CSection Incidence: N/A CSection Incision: N/A BABY A INFORMATION Infant Delivery Date/Time: 03/24/2020 17:32 Method of Delivery: Vaginal Nurse Controlled Delivery: No Born in Route : No : N/A Forceps: N/A Vacuum Extraction: N/A Shoulder Dystocia : No PRESENTATION/POSITION BABY A Presentation: Cephalic Cephalic Presentation: Vertex Breech Presentation: N/A PLACENTA INFORMATION BABY A Placenta Delivery Time : 03/24/2020 17:36 Placenta Method of Delivery: Spontaneous Placenta Status: Delivered SCORES BABY A Heart Rate 1 min: >100 bpm Resp Effort 1 min: Good Cry Reflex Irritability 1 min: Cough or Sneeze or Pulls Away Muscle Tone 1 min: Active Motion Color 1 min: Body [place], Extremities Blue Resuscitation Effort 1 min: Tactile Stimulation SCORE 1 MIN: 9 Heart Rate 5 min: >100 bpm Resp Effort 5 min: Good Cry Reflex Irritability 5 min: Cough or Sneeze or Pulls Away Muscle Tone 5 min: Active Motion Color 5 min: Body [place], Extremities Blue Resuscitation Effort 5 min: N/A SCORE 5 MIN: 9 INFORMATION BABY A Gestational Age at Delivery: 38.0 Gestational Status: Early Term- 37- 38.6 Weeks Infant Outcome : Liveborn Infant Condition : Stable Sex: Male IDENTIFICATION BABY A Infant Verification Date/Time: 03/24/2020 18:17 ID Band Number: [id number] Mother's Name Verified: Yes RN Verifying : M George Additional Verifying Personnel: A [place] WEIGHT/LENGTH BABY A Birthweight (gm): 2528 Infant Weight (lb): 5 Infant Weight (oz): 9 Infant Length (in): 18.50 Length (cm): 46.99 CORD INFORMATION BABY A No. Cord Vessels: 3 Nuchal Cord : Around Neck x1, Loose Cord Blood Taken: Yes-For Eval (Mom's Blood Type - or O+) Infant Suction: None ASSESSMENT BABY A Skin to Skin: Yes
[2020-03-24] MEDS: DOCUSATE SODIUM 100 MG CAPSULE PO SCH (21:19)
[2020-03-24] MEDS: FERROUS SULFATE 325 MG TABLET PO SCH (21:19)
[2020-03-24] MEDS ORDERED: FAMOTIDINE 20 MG TABLET ONE (22:00)
[2020-03-24] MEDS ORDERED: IBUPROFEN 800 MG TABLET ONE (22:00)
[2020-03-24] MEDS: IBUPROFEN 800 MG TABLET PO SCH (22:02)
[2020-03-24] MEDS: FAMOTIDINE 20 MG TABLET PO SCH (22:02)
[2020-03-25] MEDS: IBUPROFEN 800 MG TABLET PO SCH ×3 (05:28→22:40)
[2020-03-25 07:19] LABS: HEMOGLOBIN 11.9 g/dL (12.0-15.5); MEAN CORPUSCULAR HEMOGLOBIN 32.8 pg (27.0-33.4); MEAN CORPUSCULAR VOLUME 94 fl (80-97); PLATELET COUNT 139 10^3/uL (150-450); RED BLOOD COUNT 3.63 10^6/uL (3.72-5.28); RED CELL DISTRIBUTION WIDTH 12.6 % (11.5-14.0); WHITE BLOOD COUNT 11.1 10^3/uL (4.0-10.5)
[2020-03-25] MEDS: SENNOSIDES/DOCUSATE 8.6-50 MG 1 EACH TABLET PO SCH (09:14)
[2020-03-25] MEDS: FERROUS SULFATE 325 MG TABLET PO SCH ×2 (09:14→18:33)
[2020-03-25] MEDS: FAMOTIDINE 20 MG TABLET PO SCH ×2 (09:14→22:41)
[2020-03-25] MEDS: DOCUSATE SODIUM 100 MG CAPSULE PO SCH ×2 (09:14→18:33)
[2020-03-25] MEDS: PRENATAL VITAMIN W DHA CAPSULE PO SCH (09:14)
--- NOTE | 2020-03-25 12:53 | PDOC PROGRESS REPORT ---
Subjective-OB Progress Note for:: 03/25/20 Subjective: Pt doing well, no concerns. She is ambulatory, reports reg diet, bleeding normal and is bonding w baby. Physical Exam (OB) Vital Signs: Temp Pulse Resp BP Pulse Ox 97.7 F 69 16 121/66 100 03/25/20 08:52 03/25/20 07:46 03/25/20 07:46 03/25/20 07:46 03/25/20 07:46 Intake & Output 03/24/20 03/25/20 03/26/20 06:59 06:59 06:59 Intake Total 400 Balance 400 Weight 86.9 kg - PIH/Pre-Eclampsia Headache: Absent Epigastric Pain: No Visual Changes: No - Maternal Morbidity 59. Maternal Morbidity (serious complications experinced by the mother associated with labor and delivery: None of the above - Lochia Lochia Amount: Scant < 10 ml Lochia Color: Rubra/Red - Abdomen Description: Soft Hernia Present: No Fundal Description: Firm, Midline Fundal Height: u/u - u/2 Objective-Diagnostic Laboratory: 03/25/20 06:42 03/24/20 03/24/20 03/24/20 14:15 18:43 18:43 WBC 10.3 RBC 4.19 Hgb 13.8 Hct 39.6 MCV 95 MCH 32.9 MCHC 34.8 RDW 12.9 Plt Count 156 Seg Neutrophils % 88.7 H Urine Color YELLOW Urine Appearance CLEAR Urine pH 6.0 Ur Specific [place] 1.016 Urine Protein NEGATIVE Urine Glucose (UA) NEGATIVE Urine Ketones TRACE H Urine Blood NEGATIVE Urine Nitrite NEGATIVE Ur Leukocyte Esterase NEGATIVE Blood Type O POSITIVE Antibody Screen NEGATIVE 03/25/20 06:42 WBC 11.1 H RBC 3.63 L Hgb 11.9 L Hct 34.0 L MCV 94 MCH 32.8 MCHC 35.0 RDW 12.6 Plt Count 139 L Seg Neutrophils % Urine Color Urine Appearance Urine pH Ur Specific [place] Urine Protein Urine Glucose (UA) Urine Ketones Urine Blood Urine Nitrite Ur Leukocyte Esterase Blood Type Antibody Screen Assessment and Plan(PN) - Assessment and Plan (1) Delivery normal Is this a current diagnosis for this admission?: Yes (2) Carrier of group B Streptococcus Is this a current diagnosis for this admission?: Yes - Time Spent with Patient Time with patient: Less than 15 minutes Medications reviewed and adjusted accordingly: Yes - Disposition Anticipated Discharge Disposition: Home, Self Care Anticipated Discharge Timeframe: within 24 hours
[2020-03-26] MEDS: IBUPROFEN 800 MG TABLET PO SCH ×2 (05:31→14:53)
[2020-03-26 08:36] VITALS: BP 123/84
[2020-03-26] MEDS: SENNOSIDES/DOCUSATE 8.6-50 MG 1 EACH TABLET PO SCH (09:33)
[2020-03-26] MEDS: FERROUS SULFATE 325 MG TABLET PO SCH (09:34)
[2020-03-26] MEDS: DOCUSATE SODIUM 100 MG CAPSULE PO SCH (09:34)
[2020-03-26] MEDS: FAMOTIDINE 20 MG TABLET PO SCH (09:34)
[2020-03-26] MEDS: PRENATAL VITAMIN W DHA CAPSULE PO SCH (09:34)
--- NOTE | 2020-03-26 13:11 | PDOC DISCHARGE SUMMARY ---
Impression - Admit/DC Date/PCP Admission Date/Primary Care Provider: 03/24/20 16:54 ALAN CHRISTIANSON MD Discharge Date: 03/26/20 - Discharge Diagnosis (1) Precipitate labor, delivered, current hospitalization Is this a current diagnosis for this admission?: Yes (2) GBS (group B Streptococcus carrier), +RV culture, currently Is this a current diagnosis for this admission?: Yes (3) Delivery normal Is this a current diagnosis for this admission?: Yes - Additional Information Discharge Diet: Regular Discharge Activity: Balance Activity w/Rest, Pelvic Rest Referrals: [facility] [Provider Group] Prescriptions: Ibuprofen [Motrin 800 mg Tablet] 800 mg PO Q8HP PRN #60 tablet PRN Reason: Home Medications: Vit/Iron Fum/Folic AC [ Tablet] 1 tab PO DAILY 09/09/17 Ibuprofen [Motrin 800 mg Tablet] 800 mg PO Q8HP PRN #60 tablet 03/26/20 Hospital Course 59. Maternal Morbidity (serious complications experinced by the mother associated with labor and delivery: None of the above Results Laboratory Results: WBC 11.1 10^3/uL (4.0-10.5) H 03/25/20 06:42 RBC 3.63 10^6/uL (3.72-5.28) L 03/25/20 06:42 Hgb 11.9 g/dL (12.0-15.5) L 03/25/20 06:42 Hct 34.0 % (36.0-47.0) L 03/25/20 06:42 MCV 94 fl (80-97) 03/25/20 06:42 MCH 32.8 pg (27.0-33.4) 03/25/20 06:42 MCHC 35.0 g/dL (32.0-36.0) 03/25/20 06:42 RDW 12.6 % (11.5-14.0) 03/25/20 06:42 Plt Count 139 10^3/uL (150-450) L 03/25/20 06:42 Lymph % (Auto) 7.3 % (13-45) L 03/24/20 18:43 [place] % (Auto) 3.5 % (3-13) 03/24/20 18:43 Eos % (Auto) 0.0 % (0-6) 03/24/20 18:43 Baso % (Auto) 0.5 % (0-2) 03/24/20 18:43 Absolute Neuts (auto) 9.1 10^3/uL (1.7-8.2) H 03/24/20 18:43 Absolute Lymphs (auto) 0.8 10^3/uL (0.5-4.7) 03/24/20 18:43 Absolute Monos (auto) 0.4 10^3/uL (0.1-1.4) 03/24/20 18:43 Absolute Eos (auto) 0.0 10^3/uL (0.0-0.6) 03/24/20 18:43 Absolute Basos (auto) 0.1 10^3/uL (0.0-0.2) 03/24/20 18:43 Seg Neutrophils % 88.7 % (42-78) H 03/24/20 18:43 Urine Color YELLOW 03/24/20 14:15 Urine Appearance CLEAR 03/24/20 14:15 Urine pH 6.0 (5.0-9.0) 03/24/20 14:15 Ur Specific [place] 1.016 03/24/20 14:15 Urine Protein NEGATIVE mg/dL (NEGATIVE) 03/24/20 14:15 Urine Glucose (UA) NEGATIVE mg/dL (NEGATIVE) 03/24/20 14:15 Urine Ketones TRACE mg/dL (NEGATIVE) H 03/24/20 14:15 Urine Blood NEGATIVE (NEGATIVE) 03/24/20 14:15 Urine Nitrite NEGATIVE (NEGATIVE) 03/24/20 14:15 Urine Bilirubin NEGATIVE (NEGATIVE) 03/24/20 14:15 Urine Urobilinogen 4.0 mg/dL (<2.0) H 03/24/20 14:15 Ur Leukocyte Esterase NEGATIVE (NEGATIVE) 03/24/20 14:15 Urine Ascorbic Acid NEGATIVE (NEGATIVE) 03/24/20 14:15 Urine Opiates Screen NEGATIVE 03/24/20 14:15 Urine Methadone Screen NEGATIVE 03/24/20 14:15 Ur Barbiturates Screen NEGATIVE 03/24/20 14:15 Ur Phencyclidine Scrn NEGATIVE 03/24/20 14:15 Ur Amphetamines Screen NEGATIVE 03/24/20 14:15 U Benzodiazepines Scrn NEGATIVE 03/24/20 14:15 Urine Cocaine Screen NEGATIVE 03/24/20 14:15 U Marijuana (THC) Screen NEGATIVE 03/24/20 14:15 RPR NONREACTIVE (NONREACTIVE) 03/24/20 18:43 Blood Type O POSITIVE 03/24/20 18:43 Antibody Screen NEGATIVE 03/24/20 18:43 Plan Plan of Treatment: follow up in [address] [facility] for post check
== END 2020-03-26 18:30 | disposition home or self-care (01) | DRG 807 ==
LOC: LC 14:03 → LR 16:54 → 2S 22:30
PROVIDERS: ADMIT Obstetrics & Gynecology; ATTEND Obstetrics & Gynecology
PROC: 10E0XZZ Delivery of Products of Conception, External Approach (ICD-10-PCS; principal; 2020-03-24)
DX: O99.824 Streptococcus B carrier state complicating childbirth (principal); O62.2 Other uterine inertia; O69.81X0 Labor and delivery complicated by cord around neck, without compression, not applicable or unspecified; Z3A.38 38 weeks gestation of pregnancy; Z37.0 Single live birth
CPT/HCPCS: 36415; 80307; 81005; 85025; 85027; 86592; 86850; 86900; 86901; 94760; J2540; J2590; J3490